=== PATIENT | female | born 1980 | race Caucasian/White ===

== ENCOUNTER 2016-07-23 11:54 | Inpatient (IN) | payer OTHER ==
[~2016-07-23] VITALS: Ht 157.5 cm; Wt 75.5 kg
[~2016-07-23 11:54] MED LIST: ASPIR 8181 M1 PO; ASPIR-LOW81 MG PO; ATORVASTATIN CA80 MG PO; Aspirin E.C. PO; CLARITIN,ALAVAR10 MG PO; CLOPIDOGREL75 MG PO; DEPAKOTE ER500 MG PO; FLUOXETINE HCL10 M1 PO; FLUOXETINE HCL10 MG PO; FLUOXETINE HCL60 MG PO; GEODON20 MG PO; GEODON40 MG PO; GLIPIZIDE5 MG PO; GLUCOPHAGE500 MG PO; ILOTYCIN1 GM LEFT EYE; KEPPRA500 MG PO; LAMICTAL200 MG PO; LAMOTRIGINE200 MG PO; LANTUS 10100 UNITS/ SC; LATUDA20 MG PO; LEVEMIR FL100 UNIT/1 SC; LEVEMIR100 UNIT/2 SQ; LEVO-T125 MCG PO; LEVOFLOXACIN750 MG PO; LEVOTHYROXINE125 MCG PO; LIPITOR40 MG PO; LO-DOSE ASPIRIN81 M2 PO; LOPRESSOR25 MG PO; METFORMIN HCL500 MG PO; METOPROLOL SUCC25 MG PO; METOPROLOL TART25 MG PO; MOTRIN800 MG PO; NICOTINE PATCH1 EAC2 TD; NORCO 5/3251 TABLET PO; PANTOPRAZOLE SO40 MG PO; PLAVIX75 MG PO; PRAVASTATIN SOD40 MG PO; RISPERDAL2 MG PO; RISPERDAL3 MG PO; ROWEEPRA500 MG PO; SAPHRIS5 MG SL; SYNTHROID125 MCG PO; TYLENOL WITH C1 EACH PO; ZESTORETIC 10-1 EAC1 PO; ZESTORETIC 20-1 EAC1 NG; ZESTORETIC 20-1 EAC1 PO; ZIPRASIDONE HCL20 MG PO; ZIPRASIDONE HCL80 MG PO; Zestoretic,Prinzide PO
[2016-07-23 13:07] LABS: CHLORIDE 91 mEq/L (99-109); POTASSIUM 3.9 mEq/L (3.7-5.4); SODIUM 131 mEq/L (136-147)
[2016-07-23 13:08] LABS: GLUCOSE 184 mg/dL (70-99)
[2016-07-23 13:10] LABS: ANION GAP 17 MEQ/L (2-14)
[2016-07-23 13:12] LABS: GFR ESTIMATE (CALCULATED) > 59 mL/min/
[2016-07-23 13:13] LABS: UREA NITROGEN (BUN) 5 mg/dL (9-23)
[2016-07-23 13:15] LABS: CREATINE KINASE 110 IU/L (1-294)
[2016-07-23 13:33] LABS: MCH 29.3 PG (29.0-34.0); MCHC 33.2 G/DL (30.0-36.0); MCV 88.4 FL (83-99); MEAN PLAT.VOLUME 10.2 uM^3 (9.5-12.4); PLATELET COUNT 300 K/uL (156-360); RBC DIS.WIDTH-CV 12.7 % (11.8-14.6); RBC DIS.WIDTH-SD 40.7 % (39-53)
[2016-07-23 13:34] LABS: WHITE BLOOD COUNT 15.4 K/uL (4.1-10.2)
[2016-07-23 15:09] LABS: TROP-I INTERPRETATION NEGATIVE; TROPONIN-I < 0.01 ng/mL (0.0-0.30)
[2016-07-23 17:22] LABS: QUANTITATIVE HCG < 4.0 MIU/ML
[2016-07-23 19:00] VITALS: BP 127/89; BP 128/89
[2016-07-23 22:04] LABS: TROP-I INTERPRETATION NEGATIVE; TROPONIN-I 0.02 ng/mL (0.0-0.30)
[2016-07-23 22:16] LABS: AMPHETAMINES QUANT VALUE 0 NG/ML; BARBITUATES QUANT VALUE 0 NG/ML; BENZODIAZEPINES, URINE SCREEN POSITIVE (200 ng/mL); MARIJUANA QUANT VALUE 0 NG/ML; OPIATES QUANTITATIVE VALUE 0 NG/ML; PHENCYCLIDINE QUANT VALUE 0 NG/ML
[2016-07-23 23:17] VITALS: BP 97/56
[2016-07-24 03:06] VITALS: BP 140/74
[2016-07-24 03:25] LABS: HEMATOCRIT 36.9 % (36.0-46.0); MCH 28.9 PG (29.0-34.0); MCHC 33.3 G/DL (30.0-36.0); MCV 86.6 FL (83-99); MEAN PLAT.VOLUME 9.9 uM^3 (9.5-12.4); PLATELET COUNT 281 K/uL (156-360); RBC DIS.WIDTH-CV 12.7 % (11.8-14.6); RBC DIS.WIDTH-SD 39.2 % (39-53); RED BLOOD COUNT 4.26 M/uL (3.80-5.20)
[2016-07-24 03:26] LABS: WHITE BLOOD COUNT 8.8 K/uL (4.1-10.2)
[2016-07-24 03:32] LABS: CHLORIDE 99 mEq/L (99-109); POTASSIUM 3.8 mEq/L (3.7-5.4); SODIUM 134 mEq/L (136-147)
[2016-07-24 03:34] LABS: GLUCOSE 123 mg/dL (70-99)
[2016-07-24 03:36] LABS: ANION GAP 9 MEQ/L (2-14)
[2016-07-24 03:38] LABS: GFR ESTIMATE (CALCULATED) > 59 mL/min/
[2016-07-24 03:39] LABS: UREA NITROGEN (BUN) 4 mg/dL (9-23)
[2016-07-24 03:45] LABS: TROP-I INTERPRETATION NEGATIVE; TROPONIN-I < 0.01 ng/mL (0.0-0.30)
[2016-07-24 07:07] VITALS: BP 116/67
[2016-07-24 11:08] VITALS: BP 118/85
== END 2016-07-24 11:23 | disposition left against medical advice (07) | DRG 101 ==
LOC: EME 11:54 → EDOF 15:40 → 4EAST 18:56
PROVIDERS: Emergency Medicine; Hospitalist; Internal Medicine
DX: G40.909 Epilepsy, unspecified, not intractable, without status epilepticus (principal); I69.352 Hemiplegia and hemiparesis following cerebral infarction affecting left dominant side; I45.6 Pre-excitation syndrome; F31.9 Bipolar disorder, unspecified; I10 Essential (primary) hypertension; E78.5 Hyperlipidemia, unspecified; E11.9 Type 2 diabetes mellitus without complications; E03.9 Hypothyroidism, unspecified; J44.9 Chronic obstructive pulmonary disease, unspecified; F17.210 Nicotine dependence, cigarettes, uncomplicated; I69.320 Aphasia following cerebral infarction; Z91.14 Patient's other noncompliance with medication regimen; Z79.02 Long term (current) use of antithrombotics/antiplatelets; Z79.82 Long term (current) use of aspirin
CPT/HCPCS: 70450; 80048; 80164; 82550; 84484; 84702; 85027; 93005; 93306; 95819; 99281; 99285; J1650; J1815; J1953; J2250; J7030; J7050

== ENCOUNTER 2016-08-14 17:28 | Emergency (ER) | payer OTHER ==
[~2016-08-14] VITALS: Ht 149.9 cm; Wt 73.2 kg
[2016-08-14 18:19] LABS: CHLORIDE 95 mEq/L (99-109); POTASSIUM 3.7 mEq/L (3.7-5.4); SODIUM 137 mEq/L (136-147)
[2016-08-14 18:21] LABS: GLUCOSE 117 mg/dL (70-99)
[2016-08-14 18:22] LABS: ANION GAP 11 MEQ/L (2-14)
[2016-08-14 18:23] LABS: TOTAL BILIRUBIN 0.3 mg/dL (0.0-1.0)
[2016-08-14 18:24] LABS: SERUM ETHYL ALCOHOL < 10 mg/dL
[2016-08-14 18:25] LABS: GFR ESTIMATE (CALCULATED) > 59 mL/min/
[2016-08-14 18:26] LABS: ALKALINE PHOSPHATASE 63 IU/L (3-129)
[2016-08-14 18:27] LABS: UREA NITROGEN (BUN) 10 mg/dL (9-23)
[2016-08-14 18:28] LABS: SALICYLATE < 5.0 MG/DL (15-30)
[2016-08-14 18:30] LABS: EOSINOPHIL (%) 1.4 % (0-5); EOSINOPHIL COUNT 0.2 K/uL (0-0.3); HEMATOCRIT 29.7 % (36.0-46.0); IMMATURE GRANULOCYTE (%) 0.2 % (0.0-0.7); LYMPHOCYTE COUNT 2.4 K/uL (1.0-2.8); MCH 29.6 PG (29.0-34.0); MCHC 33.3 G/DL (30.0-36.0); MCV 88.9 FL (83-99); MEAN PLAT.VOLUME 10.3 uM^3 (9.5-12.4); MONOCYTE (%) 10.7 % (3-12); MONOCYTE COUNT 1.2 K/uL (0-0.8); NEUTROPHIL (%) 65.1 % (45-76); PLATELET COUNT 319 K/uL (156-360); RBC DIS.WIDTH-CV 12.9 % (11.8-14.6); RBC DIS.WIDTH-SD 41.7 % (39-53); RED BLOOD COUNT 3.34 M/uL (3.80-5.20); WHITE BLOOD COUNT 10.8 K/uL (4.1-10.2)
[2016-08-14 18:40] LABS: QUANTITATIVE HCG < 4.0 MIU/ML
[2016-08-14 18:47] LABS: ADD MIUA? YES; BILIRUBIN NEGATIVE; BLOOD NEGATIVE; COLOR YELLOW ((YELLOW)); GLUCOSE (STRIP) 150; KETONES NEGATIVE; LEUKOCYTES NEGATIVE; NITRITE NEGATIVE; PROTEIN (STRIP) NEGATIVE
[2016-08-14 18:54] LABS: BACTERIA NONE SEEN /HPF; EPITHELIAL CELLS 1+ /HPF; MUCUS TRACE /LPF; RED BLOOD CELLS 0-5 /HPF (0-5); UCUL ADDED? NO; WHITE BLOOD CELLS 0-5 /HPF (0-5)
[2016-08-14 18:55] LABS: AMPHETAMINE NEGATIVE (500 ng/mL); BARBITURATES NEGATIVE (200 ng/mL); BENZODIAZEPINES NEGATIVE (150 ng/mL); COCAINE NEGATIVE (150 ng/mL); INTERNAL CONTROLS VALID? YES; METHADONE NEGATIVE (200 ng/mL); METHAMPHETAMINE NEGATIVE (500 ng/mL); OPIATES (MORPHINE) NEGATIVE (100 ng/mL); OXYCODONE NEGATIVE (100 ng/mL); PHENCYCLIDINE NEGATIVE (25 ng/mL); PROPOXYPHENE NEGATIVE (300 ng/mL); THC CANNABINOIDS NEGATIVE (50 ng/mL); TRICYCLIC ANTIDEPRESSANTS NEGATIVE (300 ng/mL)
[2016-08-14 19:17] VITALS: BP 83/38
== END 2016-08-14 19:18 | disposition home or self-care (01) ==
LOC: EME → EDBD 17:28 → EME 17:28
PROVIDERS: Emergency Medicine
DX: F32.9 Major depressive disorder, single episode, unspecified (principal); D64.9 Anemia, unspecified; F17.200 Nicotine dependence, unspecified, uncomplicated
CPT/HCPCS: 80053; 81003; 84702; 85025; 90837; 99281; 99285; G0480

== ENCOUNTER 2016-08-17 10:17 | Inpatient (IN) | payer OTHER ==
[2016-08-17] VITALS (7 sets, daily range): BP systolic 108–133; BP diastolic 54–78
[~2016-08-17] VITALS: Ht 152.4 cm; Wt 71.3 kg
[2016-08-17 10:42] LABS: BASOPHIL COUNT 0.1 K/uL (0-0.1); EOSINOPHIL (%) 0.2 % (0-5); HEMATOCRIT 34.2 % (36.0-46.0); IMMATURE GRANULOCYTE (%) 0.4 % (0.0-0.7); IMMATURE GRANULOCYTE COUNT 0.7 K/uL; LYMPHOCYTE COUNT 1.6 K/uL (1.0-2.8); MCHC 32.5 G/DL (30.0-36.0); MCV 89.3 FL (83-99); MONOCYTE (%) 4.5 % (3-12); MONOCYTE COUNT 0.8 K/uL (0-0.8); NEUTROPHIL (%) 86.2 % (45-76); NEUTROPHIL COUNT 16.1 K/uL (1.8-6.4); PLATELET COUNT 444 K/uL (156-360); RBC DIS.WIDTH-CV 12.2 % (11.8-14.6); RBC DIS.WIDTH-SD 38.8 % (39-53); RED BLOOD COUNT 3.83 M/uL (3.80-5.20); WHITE BLOOD COUNT 18.6 K/uL (4.1-10.2)
[2016-08-17 10:48] LABS: AMYLASE 16 IU/L (1-118); CHLORIDE 96 mEq/L (99-109); POTASSIUM 3.7 mEq/L (3.7-5.4); SODIUM 137 mEq/L (136-147)
[2016-08-17 10:51] LABS: ANION GAP 22 MEQ/L (2-14)
[2016-08-17 10:53] LABS: SERUM ETHYL ALCOHOL < 10 mg/dL
[2016-08-17 10:54] LABS: GFR ESTIMATE (CALCULATED) > 59 mL/min/; GLUCOSE 319 mg/dL (70-99)
[2016-08-17 10:55] LABS: UREA NITROGEN (BUN) 7 mg/dL (9-23)
[2016-08-17 10:57] LABS: LIPASE 4 U/L (1.0-51.0)
[2016-08-17 11:00] LABS: TROP-I INTERPRETATION NEGATIVE; TROPONIN-I < 0.01 ng/mL (0.0-0.30)
[2016-08-17 11:04] LABS: QUANTITATIVE HCG < 4.0 MIU/ML
[2016-08-17 11:12] LABS: INTER. NORMALIZED RATIO 1.1; PROTHROMBIN TIME 10.7 (9.2-11.2); PTT 28.5 (25-32)
[2016-08-17 12:27] LABS: ADD MIUA? NO; BILIRUBIN NEGATIVE; BLOOD NEGATIVE; COLOR YELLOW ((YELLOW)); GLUCOSE (STRIP) >=500; KETONES 20; LEUKOCYTES NEGATIVE; NITRITE NEGATIVE; PROTEIN (STRIP) NEGATIVE; SPECIFIC GRAVITY 1.012 (1.000-1.030); UCUL ADDED? NO; UROBILINOGEN 0.2 MG/DL (0.2-1.0)
[2016-08-17 12:34] LABS: AMPHETAMINE NEGATIVE (500 ng/mL); BARBITURATES NEGATIVE (200 ng/mL); BENZODIAZEPINES NEGATIVE (150 ng/mL); COCAINE NEGATIVE (150 ng/mL); INTERNAL CONTROLS VALID? YES; METHADONE NEGATIVE (200 ng/mL); METHAMPHETAMINE NEGATIVE (500 ng/mL); OPIATES (MORPHINE) NEGATIVE (100 ng/mL); OXYCODONE NEGATIVE (100 ng/mL); PHENCYCLIDINE NEGATIVE (25 ng/mL); PROPOXYPHENE NEGATIVE (300 ng/mL); THC CANNABINOIDS NEGATIVE (50 ng/mL); TRICYCLIC ANTIDEPRESSANTS NEGATIVE (300 ng/mL)
[2016-08-17 12:39] LABS: BASE EXCESS 4.1 mEq/L (-3 to +3); BICARBONATE 27.1 mEq/L (22-26); CARBOXY HGB 3.9 % (0-5); METHEMOGLOBIN 0.8 % (0-1.5); PO2 126 mm Hg (80-100)
[2016-08-17 12:40] LABS: COMMENTS - BLOOD GASES A+C+; DEVICE 840 PB; FI02 50 %; MECHANICAL RATE 16 resp/min; MODE AC; PCO2 34 mm Hg (35-45); PEEP 5 CM/H20; SITE LR; TIDAL VOLUME 550 ML; TOTAL RESP RATE 16 resp/min; pH 7.51 (7.35-7.45)
[2016-08-17 16:35] LABS: HEMATOCRIT 29.9 % (36.0-46.0); MCH 28.5 PG (29.0-34.0); MCHC 32.4 G/DL (30.0-36.0); MCV 87.9 FL (83-99); MEAN PLAT.VOLUME 9.7 uM^3 (9.5-12.4); PLATELET COUNT 430 K/uL (156-360); RBC DIS.WIDTH-CV 12.3 % (11.8-14.6); RBC DIS.WIDTH-SD 38.3 % (39-53)
[2016-08-17 16:42] LABS: CHLORIDE 100 mEq/L (99-109); POTASSIUM 4.3 mEq/L (3.7-5.4); SODIUM 138 mEq/L (136-147)
[2016-08-17 16:46] LABS: ANION GAP 12 MEQ/L (2-14)
[2016-08-17 16:47] LABS: SERUM ETHYL ALCOHOL < 10 mg/dL
[2016-08-17 16:48] LABS: ALKALINE PHOSPHATASE 70 IU/L (3-129); GFR ESTIMATE (CALCULATED) > 59 mL/min/
[2016-08-17 16:49] LABS: UREA NITROGEN (BUN) 7 mg/dL (9-23)
[2016-08-17 16:53] LABS: GLUCOSE 144 mg/dL (70-99); TOTAL BILIRUBIN 0.1 mg/dL (0.0-1.0)
[2016-08-17 20:56] LABS: METH RESISTANT S AUREUS PCR NEGATIVE (NEGATIVE)
[2016-08-17 20:57] LABS: PROBE CHECK PASS; SPECIMEN PROCESSING CONTROL PASS
[2016-08-18] VITALS (16 sets, daily range): BP systolic 114–157; BP diastolic 54–87
[2016-08-18 05:47] LABS: HEMATOCRIT 29.1 % (36.0-46.0); MCH 29.2 PG (29.0-34.0); MCV 88.4 FL (83-99); MEAN PLAT.VOLUME 9.9 uM^3 (9.5-12.4); PLATELET COUNT 385 K/uL (156-360); RBC DIS.WIDTH-SD 42.2 % (39-53); RED BLOOD COUNT 3.29 M/uL (3.80-5.20); WHITE BLOOD COUNT 14.8 K/uL (4.1-10.2)
[2016-08-18 06:14] LABS: ANION GAP 15 MEQ/L (2-14); CHLORIDE 99 MEQ/L (99-109); GFR ESTIMATE (CALCULATED) > 59 mL/min/; GLUCOSE 110 mg/dL (70-99); MAGNESIUM 1.6 mg/dl (1.3-2.7); POTASSIUM 3.5 MEQ/L (3.7-5.4); SAMPLE HEMOLYSIS CHECK 0; SAMPLE ICTERIC CHECK 0; SAMPLE LIPEMIA CHECK 0; SODIUM 137 MEQ/L (136-147); UREA NITROGEN (BUN) 10 mg/dL (9-23)
[2016-08-18 06:17] LABS: POINT-OF-CARE METER ID UU13113803
[2016-08-19] VITALS (13 sets, daily range): BP systolic 109–146; BP diastolic 61–91
[2016-08-19 05:41] LABS: POINT-OF-CARE METER ID UU14162636
[2016-08-19 05:52] LABS: HEMATOCRIT 29.4 % (36.0-46.0); MCH 28.6 PG (29.0-34.0); MCV 89.4 FL (83-99); MEAN PLAT.VOLUME 9.9 uM^3 (9.5-12.4); PLATELET COUNT 363 K/uL (156-360); RED BLOOD COUNT 3.29 M/uL (3.80-5.20); WHITE BLOOD COUNT 14.7 K/uL (4.1-10.2)
[2016-08-19 06:45] LABS: ANION GAP 13 MEQ/L (2-14); CHLORIDE 105 MEQ/L (99-109); GFR ESTIMATE (CALCULATED) > 59 mL/min/; GLUCOSE 130 mg/dL (70-99); MAGNESIUM 1.7 mg/dl (1.3-2.7); POTASSIUM 3.9 MEQ/L (3.7-5.4); SAMPLE HEMOLYSIS CHECK 0; SAMPLE ICTERIC CHECK 0; SAMPLE LIPEMIA CHECK 0; UREA NITROGEN (BUN) 7 mg/dL (9-23)
[2016-08-19 06:56] LABS: SODIUM 145 MEQ/L (136-147)
[2016-08-20] VITALS (11 sets, daily range): BP systolic 121–173; BP diastolic 66–91
[2016-08-20 05:55] LABS: POINT-OF-CARE METER ID UU13113803
[2016-08-20 06:12] LABS: HEMATOCRIT 33.7 % (36.0-46.0); MCH 28.9 PG (29.0-34.0); MCHC 32.6 G/DL (30.0-36.0); MCV 88.7 FL (83-99); PLATELET COUNT 442 K/uL (156-360); RBC DIS.WIDTH-CV 12.8 % (11.8-14.6); RBC DIS.WIDTH-SD 41.2 % (39-53)
[2016-08-20 06:20] LABS: ANION GAP 10 MEQ/L (2-14); CHLORIDE 103 MEQ/L (99-109); GFR ESTIMATE (CALCULATED) > 59 mL/min/; GLUCOSE 160 mg/dL (70-99); MAGNESIUM 1.5 mg/dl (1.3-2.7); POTASSIUM 3.7 MEQ/L (3.7-5.4); SAMPLE HEMOLYSIS CHECK 0; SAMPLE ICTERIC CHECK 0; SAMPLE LIPEMIA CHECK 0; SODIUM 144 MEQ/L (136-147); UREA NITROGEN (BUN) 6 mg/dL (9-23)
[2016-08-20] MEDS ORDERED: Depakene PO (07:35)
[2016-08-20] MEDS ORDERED: LEVETIRACETAM750 MG PO (07:35)
[2016-08-20] MEDS ORDERED: CLOPIDOGREL75 MG PO ×2 (10:05→11:54)
[2016-08-20] MEDS ORDERED: ATORVASTATIN CA80 MG PO (10:05)
[2016-08-20] MEDS ORDERED: RISPERIDONE3 MG PO (10:05)
[2016-08-20] MEDS ORDERED: ZESTORETIC 20-1 EAC1 PO ×2 (10:05→11:54)
[2016-08-20] MEDS ORDERED: ASPIR-LOW81 MG PO (10:06)
[2016-08-20] MEDS ORDERED: LEVOTHYROXINE125 MCG PO (10:06)
[2016-08-20] MEDS ORDERED: METOPROLOL TART25 MG PO (10:07)
[2016-08-20] MEDS ORDERED: METFORMIN HCL500 MG PO (10:09)
[2016-08-20] MEDS ORDERED: LANTUS 10100 UNITS/ SQ (10:10)
[2016-08-20] MEDS ORDERED: DIVALPROEX SOD500 M1 PO (10:11)
[2016-08-20 12:59] LABS: POINT-OF-CARE METER ID UU13113803
[2016-08-21] MEDS ORDERED: PREDNISONE50 MG PO (08:30)
[2016-08-21] MEDS ORDERED: ZITHROMAX Z-PA250 MG PO (08:31)
== END 2016-08-20 15:29 | disposition home or self-care (01) | DRG 100 ==
LOC: EME 10:17 → 4WEST 16:09 → EDOF 16:09 → 4WEST 17:58
PROVIDERS: Emergency Medicine; Hospitalist; Internal Medicine; Internal Medicine Critical Care Medicine
PROC: 5A0935Z Assistance with Respiratory Ventilation, Less than 24 Consecutive Hours (ICD-10-PCS; principal; 2016-08-17)
PROC: 0BH17EZ Insertion of Endotracheal Airway into Trachea, Via Natural or Artificial Opening (ICD-10-PCS; principal; 2016-08-17)
DX: G40.901 Epilepsy, unspecified, not intractable, with status epilepticus (principal); G93.40 Encephalopathy, unspecified; J96.00 Acute respiratory failure, unspecified whether with hypoxia or hypercapnia; Z91.19 Patient's noncompliance with other medical treatment and regimen; F31.9 Bipolar disorder, unspecified; I10 Essential (primary) hypertension; I69.320 Aphasia following cerebral infarction; E03.9 Hypothyroidism, unspecified; F17.200 Nicotine dependence, unspecified, uncomplicated; E11.65 Type 2 diabetes mellitus with hyperglycemia; E78.5 Hyperlipidemia, unspecified; J45.909 Unspecified asthma, uncomplicated; D72.829 Elevated white blood cell count, unspecified
CPT/HCPCS: 36600; 70450; 70551; 71010; 80048; 80053; 80164; 81003; 82150; 82803; 82948; 83690; 83735; 84100; 84484; 84702; 85025; 85027; 85610; 85730; 86850; 86900; 86901; 87070; 87205; 87641; 92526 GN; 92610 GN; 93005; 94002; 94799; 99281; 99285; B4087; G0480; J1650; J1815; J1953; J2060; J2250; J2405; J2704; J3010; J7050; J7120; S0028

== ENCOUNTER 2016-08-21 07:31 | Emergency (ER) | payer OTHER ==
[~2016-08-21] VITALS: Ht 149.9 cm; Wt 73.5 kg
[~2016-08-21 07:31] MED LIST changes: +DIVALPROEX SOD500 M1 PO; +Depakene PO; +LANTUS 10100 UNITS/ SQ; +LEVETIRACETAM750 MG PO; +RISPERIDONE3 MG PO
[2016-08-21] MEDS ORDERED: PREDNISONE50 MG PO (08:30)
[2016-08-21] MEDS ORDERED: ZITHROMAX Z-PA250 MG PO (08:31)
[2016-08-21 08:44] VITALS: BP 118/81
[2016-08-21 09:10] LABS: POINT-OF-CARE METER ID UU14100415
== END 2016-08-21 08:55 | disposition home or self-care (01) ==
LOC: EME → EDBD 07:31 → EME 08:55
PROVIDERS: Emergency Medicine
DX: J20.9 Acute bronchitis, unspecified (principal); J45.901 Unspecified asthma with (acute) exacerbation; E11.9 Type 2 diabetes mellitus without complications; I10 Essential (primary) hypertension; E03.9 Hypothyroidism, unspecified; R56.9 Unspecified convulsions; Z86.73 Personal history of transient ischemic attack (TIA), and cerebral infarction without residual deficits; Z79.84 Long term (current) use of oral hypoglycemic drugs; Z79.82 Long term (current) use of aspirin; F17.200 Nicotine dependence, unspecified, uncomplicated
CPT/HCPCS: 71020; 82948; 94640; 99281; 99284; J2930; J7644

== ENCOUNTER 2016-08-23 22:22 | Inpatient (IN) | payer OTHER ==
[~2016-08-23] VITALS: Ht 162.6 cm; Wt 70.0 kg
[~2016-08-23 22:22] MED LIST changes: +PREDNISONE50 MG PO; +ZITHROMAX Z-PA250 MG PO
[2016-08-23 23:45] LABS: CHLORIDE 100 mEq/L (99-109); HEMATOCRIT 32.8 % (36.0-46.0); MCH 28.7 PG (29.0-34.0); MCV 89.6 FL (83-99); MEAN PLAT.VOLUME 9.2 uM^3 (9.5-12.4); PLATELET COUNT 497 K/uL (156-360); POTASSIUM 4.1 mEq/L (3.7-5.4); RBC DIS.WIDTH-CV 12.9 % (11.8-14.6); RBC DIS.WIDTH-SD 40.6 % (39-53); RED BLOOD COUNT 3.66 M/uL (3.80-5.20); SODIUM 141 mEq/L (136-147)
[2016-08-23 23:46] LABS: GLUCOSE 238 mg/dL (70-99); WHITE BLOOD COUNT 26.6 K/uL (4.1-10.2)
[2016-08-23 23:48] LABS: ANION GAP 12 MEQ/L (2-14)
[2016-08-23 23:50] LABS: GFR ESTIMATE (CALCULATED) > 59 mL/min/
[2016-08-23 23:51] LABS: UREA NITROGEN (BUN) 10 mg/dL (9-23)
[2016-08-23 23:56] LABS: TROP-I INTERPRETATION NEGATIVE; TROPONIN-I 0.01 ng/mL (0.0-0.30)
[2016-08-23 23:57] LABS: CARBON DIOXIDE (BICARBONATE) 35.5 MEQ/L (20-31)
[2016-08-24 05:02] LABS: INFLUENZA A VIRAL ANTIGEN NEGATIVE; INFLUENZA B VIRAL ANTIGEN NEGATIVE
[2016-08-24 05:08] LABS: BASE EXCESS 4.1 mEq/L (-3 to +3); BICARBONATE 27.1 mEq/L (22-26); CARBOXY HGB 2.5 % (0-5); METHEMOGLOBIN 1.4 % (0-1.5); PCO2 34 mm Hg (35-45); pH 7.51 (7.35-7.45)
[2016-08-24 05:09] LABS: PO2 61 mm Hg (80-100); SITE LR
[2016-08-24 05:10] LABS: COMMENTS - BLOOD GASES A+C+; DEVICE NC
[2016-08-24 05:12] LABS: TOTAL RESP RATE 24 resp/min
[2016-08-24 06:37] LABS: HEMATOCRIT 32.7 % (36.0-46.0); MCH 28.7 PG (29.0-34.0); MCHC 32.1 G/DL (30.0-36.0); MCV 89.3 FL (83-99); MEAN PLAT.VOLUME 9.1 uM^3 (9.5-12.4); PLATELET COUNT 430 K/uL (156-360); RBC DIS.WIDTH-CV 13.1 % (11.8-14.6); RBC DIS.WIDTH-SD 40.9 % (39-53); RED BLOOD COUNT 3.66 M/uL (3.80-5.20); WHITE BLOOD COUNT 24.5 K/uL (4.1-10.2)
[2016-08-24 06:38] LABS: EOSINOPHIL (%) 0 % (0-5); IMMATURE GRANULOCYTE (%) 0.3 % (0.0-0.7); IMMATURE GRANULOCYTE COUNT 0.8 K/uL; LYMPHOCYTE COUNT 0.7 K/uL (1.0-2.8); MONOCYTE (%) 1.6 % (3-12); MONOCYTE COUNT 0.4 K/uL (0-0.8); NEUTROPHIL (%) 95.3 % (45-76); NEUTROPHIL COUNT 23.3 K/uL (1.8-6.4)
[2016-08-24 07:21] LABS: ANION GAP 8 MEQ/L (2-14); CHLORIDE 108 MEQ/L (99-109); GFR ESTIMATE (CALCULATED) > 59 mL/min/; GLUCOSE 213 mg/dL (70-99); POTASSIUM 3.5 MEQ/L (3.7-5.4); SAMPLE HEMOLYSIS CHECK 0; SAMPLE ICTERIC CHECK 0; SAMPLE LIPEMIA CHECK 0; SODIUM 143 MEQ/L (136-147); UREA NITROGEN (BUN) 8 mg/dL (9-23)
[2016-08-24 08:00] LABS: POINT-OF-CARE METER ID UU13113702
[2016-08-24 12:08] LABS: POINT-OF-CARE METER ID UU14100415
[2016-08-24 16:15] LABS: POINT-OF-CARE METER ID UU13113702
[2016-08-24 17:32] LABS: ADD MIUA? NO; BILIRUBIN NEGATIVE; BLOOD NEGATIVE; COLOR YELLOW ((YELLOW)); GLUCOSE (STRIP) 250; KETONES TRACE; LEUKOCYTES NEGATIVE; NITRITE NEGATIVE; PH, URINE 7.5 (5-8); PROTEIN (STRIP) NEGATIVE; SPECIFIC GRAVITY 1.005 (1.000-1.030); UCUL ADDED? NO; UROBILINOGEN 0.2 MG/DL (0.2-1.0)
[2016-08-24 18:14] VITALS: BP 111/55
[2016-08-24] MEDS ORDERED: Zestoretic,Prinzide PO (19:25)
[2016-08-24] MEDS ORDERED: LEVETIRACETAM750 MG PO (19:25)
[2016-08-24] MEDS ORDERED: ASPIR-LOW81 MG PO (19:25)
[2016-08-24] MEDS ORDERED: CLOPIDOGREL75 MG PO (19:25)
[2016-08-24] MEDS ORDERED: DIVALPROEX SOD500 MG PO (19:25)
[2016-08-24] MEDS ORDERED: SYNTHROID125 MCG PO (19:25)
[2016-08-24] MEDS ORDERED: AUGMENTIN875 MG PO (19:25)
[2016-08-24 23:49] VITALS: BP 115/63
[2016-08-25 04:11] VITALS: BP 133/67
[2016-08-25 07:30] VITALS: BP 126/80
[2016-08-25 07:56] LABS: INTERNAL CONTROL VALID? YES
[2016-08-25 10:08] LABS: EOSINOPHIL (%) 0.8 % (0-5); EOSINOPHIL COUNT 0.2 K/uL (0-0.3); HEMATOCRIT 31.7 % (36.0-46.0); IMMATURE GRANULOCYTE (%) 0.4 % (0.0-0.7); IMMATURE GRANULOCYTE COUNT 0.1 K/uL; LYMPHOCYTE COUNT 1.2 K/uL (1.0-2.8); MCH 27.8 PG (29.0-34.0); MCHC 31.2 G/DL (30.0-36.0); MEAN PLAT.VOLUME 9.6 uM^3 (9.5-12.4); MONOCYTE (%) 1.9 % (3-12); MONOCYTE COUNT 0.4 K/uL (0-0.8); NEUTROPHIL (%) 91.3 % (45-76); NEUTROPHIL COUNT 19.2 K/uL (1.8-6.4); PLATELET COUNT 387 K/uL (156-360); RBC DIS.WIDTH-CV 13.4 % (11.8-14.6); RBC DIS.WIDTH-SD 43.8 % (39-53); RED BLOOD COUNT 3.56 M/uL (3.80-5.20)
[2016-08-25 10:32] LABS: ANION GAP 14 MEQ/L (2-14); CHLORIDE 101 MEQ/L (99-109); POTASSIUM 3.9 MEQ/L (3.7-5.4); SAMPLE HEMOLYSIS CHECK 0; SAMPLE ICTERIC CHECK 0; SAMPLE LIPEMIA CHECK 0; SODIUM 140 MEQ/L (136-147)
[2016-08-25 10:38] LABS: GFR ESTIMATE (CALCULATED) > 59 mL/min/; GLUCOSE 187 mg/dL (70-99); UREA NITROGEN (BUN) 7 mg/dL (9-23)
[2016-08-25 12:00] VITALS: BP 111/56
[2016-08-25 15:24] VITALS: BP 100/50
== END 2016-08-25 18:43 | disposition home or self-care (01) | DRG 190 ==
LOC: EME → EDBD 22:22 → EME 22:22 → 5SOUTH 08-24 01:54 → EDOF 08-24 01:54 → UNDODEPER 08-24 16:38 → 5SOUTH 08-24 17:43
PROVIDERS: Emergency Medicine; Hospitalist; Internal Medicine; Student in an Organized Health Care Education/Training Program
DX: J44.1 Chronic obstructive pulmonary disease with (acute) exacerbation (principal); J18.9 Pneumonia, unspecified organism; E03.9 Hypothyroidism, unspecified; I69.320 Aphasia following cerebral infarction; G40.909 Epilepsy, unspecified, not intractable, without status epilepticus; I10 Essential (primary) hypertension; E11.9 Type 2 diabetes mellitus without complications; E78.5 Hyperlipidemia, unspecified; Z74.01 Bed confinement status; J69.0 Pneumonitis due to inhalation of food and vomit; I45.6 Pre-excitation syndrome; E66.9 Obesity, unspecified; R00.0 Tachycardia, unspecified; F31.9 Bipolar disorder, unspecified; Z68.26 Body mass index [BMI] 26.0-26.9, adult; Z88.8 Allergy status to other drugs, medicaments and biological substances
CPT/HCPCS: 36600; 71020; 71250; 80048; 80164; 81003; 82803; 82948; 83605; 83880; 84484; 85025; 85027; 86480 90; 87040; 87070; 87116; 87205; 87206; 87449; 87502; 93005; 94640; 99202; 99281; 99285; J0456; J1644; J1815; J1956; J2543; J2930; J3370; J7030; J7050; J7644

== ENCOUNTER 2016-09-12 01:14 | Emergency (ER) | payer SELFPAY ==
[~2016-09-12] VITALS: Ht 152.4 cm; Wt 74.1 kg
[~2016-09-12 01:14] MED LIST changes: +AUGMENTIN875 MG PO; +DIVALPROEX SOD500 MG PO
[2016-09-12 02:13] LABS: AMPHETAMINE NEGATIVE (500 ng/mL); BARBITURATES NEGATIVE (200 ng/mL); BENZODIAZEPINES NEGATIVE (150 ng/mL); COCAINE PRESUMPTIVE POSITIVE (150 ng/mL); INTERNAL CONTROLS VALID? YES; METHADONE NEGATIVE (200 ng/mL); METHAMPHETAMINE NEGATIVE (500 ng/mL); OPIATES (MORPHINE) NEGATIVE (100 ng/mL); OXYCODONE NEGATIVE (100 ng/mL); PHENCYCLIDINE NEGATIVE (25 ng/mL); PROPOXYPHENE NEGATIVE (300 ng/mL); THC CANNABINOIDS PRESUMPTIVE POSITIVE (50 ng/mL); TRICYCLIC ANTIDEPRESSANTS NEGATIVE (300 ng/mL)
[2016-09-12 02:14] LABS: ADD MEDTOX COMMENT Y
[2016-09-12 02:20] LABS: HEMATOCRIT 31.4 % (36.0-46.0); MCH 28.3 PG (29.0-34.0); MCHC 31.8 G/DL (30.0-36.0); MEAN PLAT.VOLUME 9.8 uM^3 (9.5-12.4); PLATELET COUNT 273 K/uL (156-360); RBC DIS.WIDTH-CV 13.6 % (11.8-14.6); RBC DIS.WIDTH-SD 44.3 % (39-53); RED BLOOD COUNT 3.53 M/uL (3.80-5.20)
[2016-09-12 02:22] LABS: WHITE BLOOD COUNT 9.6 K/uL (4.1-10.2)
[2016-09-12 02:35] LABS: CHLORIDE 98 mEq/L (99-109); POTASSIUM 3.9 mEq/L (3.7-5.4); SODIUM 139 mEq/L (136-147)
[2016-09-12 02:37] LABS: GLUCOSE 129 mg/dL (70-99)
[2016-09-12 02:38] LABS: ANION GAP 10 MEQ/L (2-14)
[2016-09-12 02:40] LABS: SERUM ETHYL ALCOHOL < 10 mg/dL
[2016-09-12 02:41] LABS: GFR ESTIMATE (CALCULATED) > 59 mL/min/
[2016-09-12 02:43] LABS: UREA NITROGEN (BUN) 10 mg/dL (9-23)
[2016-09-12 02:44] LABS: SALICYLATE < 5.0 MG/DL (15-30)
[2016-09-12 05:28] VITALS: BP 108/59
== END 2016-09-12 05:35 | disposition home or self-care (01) ==
LOC: EME → EDBD 01:14 → EME 01:14
PROVIDERS: Emergency Medicine
DX: F31.30 Bipolar disorder, current episode depressed, mild or moderate severity, unspecified (principal); J44.9 Chronic obstructive pulmonary disease, unspecified; E11.9 Type 2 diabetes mellitus without complications; I10 Essential (primary) hypertension; I69.320 Aphasia following cerebral infarction; E03.9 Hypothyroidism, unspecified; F17.200 Nicotine dependence, unspecified, uncomplicated
CPT/HCPCS: 80048; 84999; 85027; 90839; 99281; 99284; G0480

== ENCOUNTER 2016-09-20 20:58 | Emergency (ER) | payer SELFPAY ==
[~2016-09-20] VITALS: Ht 149.9 cm; Wt 74.7 kg
[2016-09-20 22:51] LABS: MCH 28.2 PG (29.0-34.0); MCHC 30.8 G/DL (30.0-36.0); MCV 91.6 FL (83-99); MEAN PLAT.VOLUME 9.5 uM^3 (9.5-12.4); PLATELET COUNT 244 K/uL (156-360); RBC DIS.WIDTH-SD 50.2 % (39-53); RED BLOOD COUNT 4.04 M/uL (3.80-5.20); WHITE BLOOD COUNT 8.6 K/uL (4.1-10.2)
[2016-09-20 23:02] LABS: CHLORIDE 101 mEq/L (99-109); POTASSIUM 4.3 mEq/L (3.7-5.4); SODIUM 141 mEq/L (136-147)
[2016-09-20 23:04] LABS: GLUCOSE 202 mg/dL (70-99)
[2016-09-20 23:06] LABS: ANION GAP 9 MEQ/L (2-14); TOTAL BILIRUBIN 0.2 mg/dL (0.0-1.0)
[2016-09-20 23:07] LABS: SERUM ETHYL ALCOHOL < 10 mg/dL
[2016-09-20 23:08] LABS: GFR ESTIMATE (CALCULATED) > 59 mL/min/
[2016-09-20 23:09] LABS: ALKALINE PHOSPHATASE 67 IU/L (3-129)
[2016-09-20 23:10] LABS: UREA NITROGEN (BUN) 21 mg/dL (9-23)
[2016-09-20 23:11] LABS: SALICYLATE < 5.0 MG/DL (15-30)
[2016-09-20 23:23] LABS: QUANTITATIVE HCG < 4.0 MIU/ML
[2016-09-21 01:05] VITALS: BP 105/64
== END 2016-09-21 01:10 | disposition home or self-care (01) ==
LOC: EME 20:58
DX: F31.30 Bipolar disorder, current episode depressed, mild or moderate severity, unspecified (principal); E11.9 Type 2 diabetes mellitus without complications; Z91.14 Patient's other noncompliance with medication regimen; J44.9 Chronic obstructive pulmonary disease, unspecified; I69.320 Aphasia following cerebral infarction; E03.9 Hypothyroidism, unspecified; F17.200 Nicotine dependence, unspecified, uncomplicated; Z79.82 Long term (current) use of aspirin
CPT/HCPCS: 80053; 81003; 84702; 85027; 90839; 99281; 99284; G0480

== ENCOUNTER 2016-09-25 12:30 | Emergency (ER) | payer SELFPAY ==
[~2016-09-25] VITALS: Ht 157.5 cm; Wt 71.7 kg
[2016-09-25] MEDS ORDERED: UNABLE TO OBTAIN (13:34)
[2016-09-25 14:18] LABS: EOSINOPHIL (%) 0 % (0-5); HEMATOCRIT 39.8 % (36.0-46.0); IMMATURE GRANULOCYTE (%) 0.5 % (0.0-0.7); IMMATURE GRANULOCYTE COUNT 0.1 K/uL; INSTRUMENT ABS NEUTROPHIL CT 8.5 K/uL; MCH 28.8 PG (29.0-34.0); MCHC 32.2 G/DL (30.0-36.0); MCV 89.4 FL (83-99); MEAN PLAT.VOLUME 9.3 uM^3 (9.5-12.4); MONOCYTE (%) 3.9 % (3-12); MONOCYTE COUNT 0.4 K/uL (0-0.8); NEUTROPHIL COUNT 8.5 K/uL (1.8-6.4); RBC DIS.WIDTH-CV 14.6 % (11.8-14.6); RBC DIS.WIDTH-SD 47.7 % (39-53); RED BLOOD COUNT 4.45 M/uL (3.80-5.20)
[2016-09-25 14:19] LABS: PLATELET COUNT 327 K/uL (156-360)
[2016-09-25 14:22] LABS: CHLORIDE 94 mEq/L (99-109); POTASSIUM 4.4 mEq/L (3.7-5.4); SODIUM 138 mEq/L (136-147)
[2016-09-25 14:24] LABS: GLUCOSE 242 mg/dL (70-99)
[2016-09-25 14:25] LABS: ANION GAP 16 MEQ/L (2-14)
[2016-09-25 14:27] LABS: GFR ESTIMATE (CALCULATED) > 59 mL/min/
[2016-09-25 14:28] LABS: UREA NITROGEN (BUN) 16 mg/dL (9-23)
[2016-09-25 15:55] VITALS: BP 132/75
== END 2016-09-25 15:56 | disposition home or self-care (01) ==
LOC: EME 12:30
PROVIDERS: Emergency Medicine
DX: F16.20 Hallucinogen dependence, uncomplicated (principal); E11.65 Type 2 diabetes mellitus with hyperglycemia; Z91.14 Patient's other noncompliance with medication regimen; J44.9 Chronic obstructive pulmonary disease, unspecified; J45.909 Unspecified asthma, uncomplicated; I10 Essential (primary) hypertension; R56.9 Unspecified convulsions; I69.320 Aphasia following cerebral infarction; E03.9 Hypothyroidism, unspecified; F12.10 Cannabis abuse, uncomplicated; F14.10 Cocaine abuse, uncomplicated; F17.200 Nicotine dependence, unspecified, uncomplicated
CPT/HCPCS: 80048; 85025; 99281; 99284

== ENCOUNTER 2016-09-26 08:01 | Emergency (ER) | payer SELFPAY ==
[~2016-09-26] VITALS: Ht 149.9 cm; Wt 70.5 kg
[~2016-09-26 08:01] MED LIST changes: +UNABLE TO OBTAIN
[2016-09-26 10:51] VITALS: BP 142/79
== END 2016-09-26 10:54 | disposition left against medical advice (07) ==
LOC: EME → EDBD 08:01 → EME 08:01
DX: F19.10 Other psychoactive substance abuse, uncomplicated (principal); R09.02 Hypoxemia; R09.81 Nasal congestion; F17.200 Nicotine dependence, unspecified, uncomplicated
CPT/HCPCS: 71020; 80053; 84702; 85025; 90832; 94644; 99281; 99284

== ENCOUNTER 2016-09-30 15:55 | Inpatient (IN) | payer OTHER ==
[~2016-09-30] VITALS: Ht 165.1 cm; Wt 71.6 kg
[2016-09-30 16:37] LABS: HEMATOCRIT 42.8 % (36.0-46.0); MCH 29.3 PG (29.0-34.0); MCHC 31.8 G/DL (30.0-36.0); MCV 92.2 FL (83-99); MEAN PLAT.VOLUME 11.3 uM^3 (9.5-12.4); PLATELET COUNT 399 K/uL (156-360); RBC DIS.WIDTH-CV 15.5 % (11.8-14.6); RBC DIS.WIDTH-SD 52.4 % (39-53); RED BLOOD COUNT 4.64 M/uL (3.80-5.20); WHITE BLOOD COUNT 16.1 K/uL (4.1-10.2)
[2016-09-30] MEDS ORDERED: PLAVIX75 MG PO (17:45)
[2016-09-30] MEDS ORDERED: KEPPRA750 MG PO (17:46)
[2016-09-30] MEDS ORDERED: SYNTHROID125 MCG PO (17:48)
[2016-09-30] MEDS ORDERED: ZESTORETIC 20-1 EAC1 PO (17:49)
[2016-09-30] MEDS ORDERED: RISPERIDONE3 MG PO (17:50)
[2016-09-30] MEDS ORDERED: VALPROIC ACID250 MG PO (17:53)
[2016-09-30] MEDS ORDERED: DIVALPROEX SOD500 M1 PO (17:54)
[2016-09-30] MEDS ORDERED: ASPIR-LOW81 MG PO (17:56)
[2016-09-30 18:20] LABS: POTASSIUM 4.1 mEq/L (3.7-5.4); SODIUM 142 mEq/L (136-147)
[2016-09-30 18:22] LABS: GLUCOSE 204 mg/dL (70-99)
[2016-09-30 18:23] LABS: ANION GAP 10 MEQ/L (2-14)
[2016-09-30 18:26] LABS: GFR ESTIMATE (CALCULATED) > 59 mL/min/; UREA NITROGEN (BUN) 8 mg/dL (9-23)
[2016-09-30 18:27] LABS: CHLORIDE 108 mEq/L (99-109)
[2016-09-30 18:28] LABS: CREATINE KINASE 27 IU/L (1-294)
[2016-09-30 18:36] LABS: PHENOBARBITAL < 5.0 MCG/ML (15-40)
[2016-09-30 19:23] LABS: ADD MIUA? NO; BILIRUBIN NEGATIVE; BLOOD NEGATIVE; COLOR STRAW ((YELLOW)); GLUCOSE (STRIP) 150; KETONES NEGATIVE; LEUKOCYTES NEGATIVE; NITRITE NEGATIVE; PROTEIN (STRIP) NEGATIVE; SPECIFIC GRAVITY 1.009 (1.000-1.030); UCUL ADDED? NO; UROBILINOGEN 0.2 MG/DL (0.2-1.0)
[2016-10-01 00:04] VITALS: BP 136/89
[2016-10-01 04:26] VITALS: BP 161/85
[2016-10-01 07:41] VITALS: BP 158/88
[2016-10-01 08:56] LABS: ALKALINE PHOSPHATASE 57 IU/L (3-129); ANION GAP 8 MEQ/L (2-14); CHLORIDE 107 MEQ/L (99-109); GFR ESTIMATE (CALCULATED) > 59 mL/min/; GLUCOSE 162 mg/dL (70-99); POTASSIUM 3.9 MEQ/L (3.7-5.4); SAMPLE HEMOLYSIS CHECK 0; SAMPLE ICTERIC CHECK 0; SAMPLE LIPEMIA CHECK 0; SODIUM 142 MEQ/L (136-147); TOTAL BILIRUBIN 0.4 MG/DL (0.0-1.0); UREA NITROGEN (BUN) 5 mg/dL (9-23)
[2016-10-01 09:01] LABS: HEMATOCRIT 38.1 % (36.0-46.0); MCH 27.9 PG (29.0-34.0); MCHC 30.7 G/DL (30.0-36.0); MCV 90.9 FL (83-99); MEAN PLAT.VOLUME 9.8 uM^3 (9.5-12.4); PLATELET COUNT 372 K/uL (156-360); RBC DIS.WIDTH-CV 15.5 % (11.8-14.6); RBC DIS.WIDTH-SD 51.2 % (39-53); RED BLOOD COUNT 4.19 M/uL (3.80-5.20)
[2016-10-01 09:35] LABS: Estimated Average Glucose 146 mg/dL (70-123); HEMOGLOBIN A1c (GLYCOHEMOGLOB) 6.7 % HGB (Below 5.7)
[2016-10-01 11:21] VITALS: BP 125/70
[2016-10-01 12:25] LABS: AMPHETAMINES QUANT VALUE 0 NG/ML; BARBITUATES QUANT VALUE 0 NG/ML; BENZODIAZEPINES QUANT VALUE 0 NG/ML; BENZODIAZEPINES, URINE SCREEN Negative (200 ng/mL); MARIJUANA QUANT VALUE 0 NG/ML; OPIATES QUANTITATIVE VALUE 0 NG/ML; PHENCYCLIDINE QUANT VALUE 0 NG/ML
[2016-10-01 16:03] VITALS: BP 99/56
[2016-10-01 16:27] LABS: POINT-OF-CARE METER ID UU14174216
[2016-10-01 19:55] VITALS: BP 102/55; BP 125/58
[2016-10-01 20:56] LABS: POINT-OF-CARE METER ID UU13113698
[2016-10-02 01:22] VITALS: BP 109/58
[2016-10-02 05:11] VITALS: BP 100/55
[2016-10-02 06:19] LABS: BASOPHIL COUNT 0.1 K/uL (0-0.1); EOSINOPHIL (%) 2.6 % (0-5); EOSINOPHIL COUNT 0.2 K/uL (0-0.3); HEMATOCRIT 39.6 % (36.0-46.0); IMMATURE GRANULOCYTE (%) 0.2 % (0.0-0.7); LYMPHOCYTE COUNT 2.6 K/uL (1.0-2.8); MCH 28.3 PG (29.0-34.0); MCHC 31.1 G/DL (30.0-36.0); MEAN PLAT.VOLUME 9.8 uM^3 (9.5-12.4); MONOCYTE (%) 7.1 % (3-12); MONOCYTE COUNT 0.4 K/uL (0-0.8); NEUTROPHIL (%) 47.8 % (45-76); PLATELET COUNT 310 K/uL (156-360); RBC DIS.WIDTH-CV 15.4 % (11.8-14.6); RBC DIS.WIDTH-SD 51.5 % (39-53); RED BLOOD COUNT 4.35 M/uL (3.80-5.20)
[2016-10-02 06:39] LABS: ANION GAP 8 MEQ/L (2-14); CHLORIDE 103 MEQ/L (99-109); GFR ESTIMATE (CALCULATED) > 59 mL/min/; GLUCOSE 184 mg/dL (70-99); POTASSIUM 3.7 MEQ/L (3.7-5.4); SAMPLE HEMOLYSIS CHECK 0; SAMPLE ICTERIC CHECK 0; SAMPLE LIPEMIA CHECK 0; SODIUM 141 MEQ/L (136-147); UREA NITROGEN (BUN) 8 mg/dL (9-23)
[2016-10-02 06:47] LABS: WHITE BLOOD COUNT 6.2 K/uL (4.1-10.2)
[2016-10-02 08:05] VITALS: BP 102/63
[2016-10-02 08:11] LABS: POINT-OF-CARE METER ID UU14174216
[2016-10-02 11:34] LABS: POINT-OF-CARE METER ID UU14174216
[2016-10-02] MEDS ORDERED: VENTOLIN HFA18 GM IH (13:25)
[2016-10-02] MEDS ORDERED: PLAVIX75 MG PO (13:25)
[2016-10-02] MEDS ORDERED: DIVALPROEX SOD500 M1 PO (13:25)
[2016-10-02] MEDS ORDERED: GLIPIZIDE5 MG PO (13:25)
[2016-10-02] MEDS ORDERED: SYNTHROID125 MCG PO (13:25)
[2016-10-02] MEDS ORDERED: KEPPRA750 MG PO (13:25)
[2016-10-02] MEDS ORDERED: ASPIR-LOW81 MG PO (13:25)
[2016-10-02] MEDS ORDERED: RISPERIDONE3 MG PO (13:25)
[2016-10-02] MEDS ORDERED: ATORVASTATIN CA40 MG PO (13:25)
[2016-10-02 16:17] LABS: POINT-OF-CARE METER ID UU13113781
== END 2016-10-02 18:05 | disposition home health service (06) | DRG 101 ==
LOC: EME 15:55 → 4EAST 21:27 → EDOF 21:27 → 4EAST 23:16
PROVIDERS: Emergency Medicine; Hospitalist; Internal Medicine
DX: G40.901 Epilepsy, unspecified, not intractable, with status epilepticus (principal); Z91.14 Patient's other noncompliance with medication regimen; E87.2 Acidosis; D72.829 Elevated white blood cell count, unspecified; J45.901 Unspecified asthma with (acute) exacerbation; J44.9 Chronic obstructive pulmonary disease, unspecified; I10 Essential (primary) hypertension; E11.9 Type 2 diabetes mellitus without complications; E03.9 Hypothyroidism, unspecified; I69.320 Aphasia following cerebral infarction; F31.9 Bipolar disorder, unspecified; D64.9 Anemia, unspecified; E78.5 Hyperlipidemia, unspecified; I45.6 Pre-excitation syndrome; F17.210 Nicotine dependence, cigarettes, uncomplicated; F12.10 Cannabis abuse, uncomplicated; F14.10 Cocaine abuse, uncomplicated; F16.10 Hallucinogen abuse, uncomplicated; Z91.419 Personal history of unspecified adult abuse
CPT/HCPCS: 70450; 71010; 80048; 80053; 80156; 80184; 80185; 80306 90; 81003; 82550; 82948; 83036; 83605; 85025; 85027; 87040; 99202; 99281; 99285; J1644; J1815; J1953; J2060; J7030; J7050

== ENCOUNTER 2016-10-02 19:27 | Emergency (ER) | payer SELFPAY ==
[~2016-10-02] VITALS: Ht 149.9 cm; Wt 72.5 kg
[~2016-10-02 19:27] MED LIST changes: +ATORVASTATIN CA40 MG PO; +KEPPRA750 MG PO; +VALPROIC ACID250 MG PO; +VENTOLIN HFA18 GM IH
[2016-10-02 21:45] VITALS: BP 110/65
== END 2016-10-02 21:47 | disposition home or self-care (01) ==
LOC: EME 19:27
DX: F32.9 Major depressive disorder, single episode, unspecified (principal); I10 Essential (primary) hypertension; F17.200 Nicotine dependence, unspecified, uncomplicated
CPT/HCPCS: 90839; 99281; 99284

== ENCOUNTER 2016-10-06 11:36 | Emergency (ER) | payer SELFPAY ==
[~2016-10-06] VITALS: Ht 149.9 cm; Wt 71.0 kg
[2016-10-06 12:29] LABS: CHLORIDE 102 mEq/L (99-109); POTASSIUM 3.5 mEq/L (3.7-5.4); SODIUM 141 mEq/L (136-147)
[2016-10-06 12:31] LABS: GLUCOSE 208 mg/dL (70-99)
[2016-10-06 12:32] LABS: ANION GAP 12 MEQ/L (2-14)
[2016-10-06 12:34] LABS: SERUM ETHYL ALCOHOL < 10 mg/dL
[2016-10-06 12:35] LABS: GFR ESTIMATE (CALCULATED) > 59 mL/min/
[2016-10-06 12:36] LABS: UREA NITROGEN (BUN) 13 mg/dL (9-23)
[2016-10-06 12:59] LABS: EOSINOPHIL (%) 1.7 % (0-5); EOSINOPHIL COUNT 0.1 K/uL (0-0.3); HEMATOCRIT 35.3 % (36.0-46.0); IMMATURE GRANULOCYTE (%) 0.5 % (0.0-0.7); INSTRUMENT ABS NEUTROPHIL CT 3.9 K/uL; LYMPHOCYTE COUNT 1.8 K/uL (1.0-2.8); MCH 28.6 PG (29.0-34.0); MCHC 31.2 G/DL (30.0-36.0); MCV 91.7 FL (83-99); MEAN PLAT.VOLUME 10.2 uM^3 (9.5-12.4); MONOCYTE (%) 9.6 % (3-12); MONOCYTE COUNT 0.6 K/uL (0-0.8); NEUTROPHIL (%) 59.4 % (45-76); NEUTROPHIL COUNT 3.9 K/uL (1.8-6.4); PLATELET COUNT 235 K/uL (156-360); RBC DIS.WIDTH-CV 15.2 % (11.8-14.6); RBC DIS.WIDTH-SD 51.1 % (39-53); RED BLOOD COUNT 3.85 M/uL (3.80-5.20); WHITE BLOOD COUNT 6.5 K/uL (4.1-10.2)
[2016-10-06 13:59] VITALS: BP 120/73
== END 2016-10-06 14:08 | disposition home or self-care (01) ==
LOC: EME → EDBD 11:36 → EME 14:08
PROVIDERS: Emergency Medicine
DX: F14.10 Cocaine abuse, uncomplicated (principal); R41.9 Unspecified symptoms and signs involving cognitive functions and awareness; F32.9 Major depressive disorder, single episode, unspecified; I10 Essential (primary) hypertension; F17.200 Nicotine dependence, unspecified, uncomplicated
CPT/HCPCS: 80048; 81003; 85025; 90839; 99281; 99284; G0480

== ENCOUNTER 2016-10-07 02:27 | Emergency (ER) | payer SELFPAY ==
[~2016-10-07] VITALS: Ht 149.9 cm; Wt 73.6 kg
[2016-10-07 07:12] LABS: HEMATOCRIT 36.7 % (36.0-46.0); MCH 28.5 PG (29.0-34.0); MCHC 31.3 G/DL (30.0-36.0); MCV 91.1 FL (83-99); PLATELET COUNT 212 K/uL (156-360); RBC DIS.WIDTH-CV 14.9 % (11.8-14.6); RED BLOOD COUNT 4.03 M/uL (3.80-5.20); WHITE BLOOD COUNT 7.4 K/uL (4.1-10.2)
[2016-10-07 07:32] LABS: CHLORIDE 99 mEq/L (99-109); POTASSIUM 3.6 mEq/L (3.7-5.4)
[2016-10-07 07:34] LABS: GLUCOSE 175 mg/dL (70-99)
[2016-10-07 07:36] LABS: ANION GAP 8 MEQ/L (2-14); TOTAL BILIRUBIN 0.6 mg/dL (0.0-1.0)
[2016-10-07 07:38] LABS: ALKALINE PHOSPHATASE 58 IU/L (3-129); GFR ESTIMATE (CALCULATED) > 59 mL/min/; QUANTITATIVE HCG < 4.0 MIU/ML
[2016-10-07 07:39] LABS: UREA NITROGEN (BUN) 10 mg/dL (9-23)
[2016-10-07 07:40] LABS: SODIUM 133 mEq/L (136-147)
[2016-10-07 07:41] LABS: LIPASE 5 U/L (1.0-51.0)
[2016-10-07 07:53] LABS: ADD MIUA? YES; BILIRUBIN NEGATIVE; BLOOD NEGATIVE; COLOR YELLOW ((YELLOW)); GLUCOSE (STRIP) >=500; KETONES 5; LEUKOCYTES NEGATIVE; NITRITE NEGATIVE; PROTEIN (STRIP) NEGATIVE; SPECIFIC GRAVITY 1.014 (1.000-1.030); UROBILINOGEN 0.2 MG/DL (0.2-1.0)
[2016-10-07 08:01] LABS: BACTERIA RARE /HPF; EPITHELIAL CELLS 1+ /HPF; MUCUS TRACE /LPF; RED BLOOD CELLS 0-5 /HPF (0-5); UCUL ADDED? NO; WHITE BLOOD CELLS 0-5 /HPF (0-5)
[2016-10-07 09:39] VITALS: BP 101/79
== END 2016-10-07 09:41 | disposition home or self-care (01) ==
LOC: EME 02:27
PROVIDERS: Emergency Medicine
DX: F19.10 Other psychoactive substance abuse, uncomplicated (principal); S30.1XXA Contusion of abdominal wall, initial encounter; S30.0XXA Contusion of lower back and pelvis, initial encounter; R10.9 Unspecified abdominal pain; S50.312A Abrasion of left elbow, initial encounter; Y04.8XXA Assault by other bodily force, initial encounter; Y07.03 Male partner, perpetrator of maltreatment and neglect; J45.909 Unspecified asthma, uncomplicated; Z86.73 Personal history of transient ischemic attack (TIA), and cerebral infarction without residual deficits
CPT/HCPCS: 72132; 74177; 80053; 81003; 83690; 84702; 85027; 93005; 99281; 99285; J1885; J2270; J7030

== ENCOUNTER 2016-10-08 08:13 | Observation (INO) | payer OTHER ==
[~2016-10-08] VITALS: Ht 149.9 cm; Wt 73.7 kg
[2016-10-08 12:12] LABS: EOSINOPHIL (%) 0.8 % (0-5); EOSINOPHIL COUNT 0.1 K/uL (0-0.3); HEMATOCRIT 35.9 % (36.0-46.0); IMMATURE GRANULOCYTE (%) 0.3 % (0.0-0.7); INSTRUMENT ABS NEUTROPHIL CT 5.9 K/uL; LYMPHOCYTE COUNT 1.3 K/uL (1.0-2.8); MCH 29.2 PG (29.0-34.0); MCHC 31.8 G/DL (30.0-36.0); MCV 91.8 FL (83-99); MEAN PLAT.VOLUME 10.2 uM^3 (9.5-12.4); MONOCYTE (%) 8.9 % (3-12); MONOCYTE COUNT 0.7 K/uL (0-0.8); NEUTROPHIL COUNT 5.9 K/uL (1.8-6.4); PLATELET COUNT 204 K/uL (156-360); RBC DIS.WIDTH-CV 14.5 % (11.8-14.6); RBC DIS.WIDTH-SD 48.7 % (39-53); RED BLOOD COUNT 3.91 M/uL (3.80-5.20)
[2016-10-08 16:58] VITALS: BP 117/62
[2016-10-08 20:00] VITALS: BP 139/63
[2016-10-08 23:23] VITALS: BP 139/96
[2016-10-09 07:25] LABS: HEMATOCRIT 36.7 % (36.0-46.0); MCH 28.6 PG (29.0-34.0); MCHC 31.6 G/DL (30.0-36.0); MCV 90.6 FL (83-99); MEAN PLAT.VOLUME 10.6 uM^3 (9.5-12.4); PLATELET COUNT 203 K/uL (156-360); RBC DIS.WIDTH-CV 14.5 % (11.8-14.6); RBC DIS.WIDTH-SD 48.8 % (39-53); RED BLOOD COUNT 4.05 M/uL (3.80-5.20)
[2016-10-09 07:34] LABS: WHITE BLOOD COUNT 4.8 K/uL (4.1-10.2)
[2016-10-09 07:35] VITALS: BP 125/62
[2016-10-09 07:39] LABS: ANION GAP 9 MEQ/L (2-14); CHLORIDE 107 MEQ/L (99-109); GFR ESTIMATE (CALCULATED) > 59 mL/min/; GLUCOSE 142 mg/dL (70-99); SAMPLE HEMOLYSIS CHECK 1; SAMPLE ICTERIC CHECK 0; SAMPLE LIPEMIA CHECK 0; UREA NITROGEN (BUN) 6 mg/dL (9-23)
[2016-10-09 07:42] LABS: POTASSIUM 4.2 MEQ/L (3.7-5.4); SODIUM 143 MEQ/L (136-147)
[2016-10-09 10:44] VITALS: BP 128/59
[2016-10-09 17:00] VITALS: BP 122/58; BP 139/75
[2016-10-09 20:00] VITALS: BP 99/54
[2016-10-10] VITALS: BP 112/57
[2016-10-10 06:58] VITALS: BP 105/69
[2016-10-10 08:46] LABS: POINT-OF-CARE METER ID UU13113831
[2016-10-10] MEDS ORDERED: LIDOCAINE700 MG TD (10:16)
== END 2016-10-10 10:42 | disposition home health service (06) ==
LOC: EME 08:13 → 5WEST 11:13 → EDOF 11:13 → 5WEST 16:47
PROVIDERS: Emergency Medicine; Hospitalist; Internal Medicine
DX: S22.42XA Multiple fractures of ribs, left side, initial encounter for closed fracture (principal); Y04.0XXA Assault by unarmed brawl or fight, initial encounter; F17.200 Nicotine dependence, unspecified, uncomplicated; F31.9 Bipolar disorder, unspecified; I69.320 Aphasia following cerebral infarction; E11.9 Type 2 diabetes mellitus without complications; J44.9 Chronic obstructive pulmonary disease, unspecified; I10 Essential (primary) hypertension; G40.909 Epilepsy, unspecified, not intractable, without status epilepticus; E03.9 Hypothyroidism, unspecified; E78.5 Hyperlipidemia, unspecified; E66.9 Obesity, unspecified
CPT/HCPCS: 71020; 71100; 80048; 82948; 84702; 85025; 85027; 94760; 99202; 99281; 99285; G0378; J2270

== ENCOUNTER 2016-10-11 15:41 | Emergency (ER) | payer OTHER ==
[~2016-10-11] VITALS: Ht 149.9 cm; Wt 75.2 kg
[~2016-10-11 15:41] MED LIST changes: +LIDOCAINE700 MG TD
[2016-10-11 16:53] VITALS: BP 110/62
[2016-10-12] MEDS ORDERED: PERCOCET 5/31 TABLET PO (06:35)
== END 2016-10-11 16:56 | disposition home or self-care (01) ==
LOC: EME 15:41
DX: M54.9 Dorsalgia, unspecified (principal); I69.920 Aphasia following unspecified cerebrovascular disease; F17.200 Nicotine dependence, unspecified, uncomplicated
CPT/HCPCS: 99281; 99284; J1885

== ENCOUNTER 2016-10-12 05:38 | Emergency (ER) | payer OTHER ==
[~2016-10-12] VITALS: Ht 149.9 cm; Wt 73.8 kg
[2016-10-12] MEDS ORDERED: PERCOCET 5/31 TABLET PO (06:35)
[2016-10-12 07:11] VITALS: BP 119/76
== END 2016-10-12 07:13 | disposition home or self-care (01) ==
LOC: EME 05:38
DX: S22.49XD Multiple fractures of ribs, unspecified side, subsequent encounter for fracture with routine healing (principal); R07.81 Pleurodynia; J45.909 Unspecified asthma, uncomplicated; I69.320 Aphasia following cerebral infarction; F17.200 Nicotine dependence, unspecified, uncomplicated
CPT/HCPCS: 71020; 99281; 99284

== ENCOUNTER 2016-10-15 05:44 | Emergency (ER) | payer OTHER ==
[~2016-10-15] VITALS: Ht 149.9 cm; Wt 70.8 kg
[~2016-10-15 05:44] MED LIST changes: +PERCOCET 5/31 TABLET PO
[2016-10-15 07:04] LABS: EOSINOPHIL (%) 3.2 % (0-5); EOSINOPHIL COUNT 0.2 K/uL (0-0.3); HEMATOCRIT 34.1 % (36.0-46.0); IMMATURE GRANULOCYTE (%) 0.5 % (0.0-0.7); LYMPHOCYTE COUNT 1.5 K/uL (1.0-2.8); MCH 28.6 PG (29.0-34.0); MCHC 31.7 G/DL (30.0-36.0); MCV 90.2 FL (83-99); MEAN PLAT.VOLUME 9.8 uM^3 (9.5-12.4); MONOCYTE COUNT 0.6 K/uL (0-0.8); NEUTROPHIL (%) 62.6 % (45-76); RBC DIS.WIDTH-CV 13.7 % (11.8-14.6); RBC DIS.WIDTH-SD 45.3 % (39-53); RED BLOOD COUNT 3.78 M/uL (3.80-5.20)
[2016-10-15 07:05] LABS: PLATELET COUNT 270 K/uL (156-360); WHITE BLOOD COUNT 6.3 K/uL (4.1-10.2)
[2016-10-15 07:28] LABS: ANION GAP 5 MEQ/L (2-14); CHLORIDE 105 MEQ/L (99-109); SAMPLE HEMOLYSIS CHECK 0; SAMPLE ICTERIC CHECK 0; SAMPLE LIPEMIA CHECK 0; SODIUM 141 MEQ/L (136-147)
[2016-10-15 07:36] LABS: GFR ESTIMATE (CALCULATED) > 59 mL/min/; GLUCOSE 152 mg/dL (70-99); UREA NITROGEN (BUN) 10 mg/dL (9-23)
[2016-10-15] MEDS ORDERED: TYLENOL WITH C1 EACH PO (09:00)
[2016-10-15 09:45] VITALS: BP 116/73
== END 2016-10-15 09:47 | disposition home or self-care (01) ==
LOC: EME 05:44
PROVIDERS: Emergency Medicine
DX: R10.9 Unspecified abdominal pain (principal); M54.9 Dorsalgia, unspecified; E11.9 Type 2 diabetes mellitus without complications; I10 Essential (primary) hypertension; E03.9 Hypothyroidism, unspecified; Z86.73 Personal history of transient ischemic attack (TIA), and cerebral infarction without residual deficits; F17.200 Nicotine dependence, unspecified, uncomplicated
CPT/HCPCS: 74177; 80048; 81003; 85025; 99281; 99285; J1885; J7030

== ENCOUNTER 2016-10-23 16:29 | Emergency (ER) | payer OTHER ==
[~2016-10-23] VITALS: Ht 149.9 cm; Wt 79.7 kg
[2016-10-23 17:30] LABS: ADD MIUA? YES; BILIRUBIN NEGATIVE; BLOOD NEGATIVE; COLOR YELLOW ((YELLOW)); GLUCOSE (STRIP) NEGATIVE; KETONES NEGATIVE; LEUKOCYTES NEGATIVE; NITRITE NEGATIVE; PROTEIN (STRIP) NEGATIVE; SPECIFIC GRAVITY 1.009 (1.000-1.030); UROBILINOGEN 0.2 MG/DL (0.2-1.0)
[2016-10-23 17:32] LABS: BACTERIA RARE /HPF; EPITHELIAL CELLS RARE /HPF; MUCUS NONE SEEN /LPF; RED BLOOD CELLS 0-5 /HPF (0-5); WHITE BLOOD CELLS 0-5 /HPF (0-5)
[2016-10-23 17:42] LABS: ADD MEDTOX COMMENT Y; AMPHETAMINE NEGATIVE (500 ng/mL); BARBITURATES NEGATIVE (200 ng/mL); BENZODIAZEPINES NEGATIVE (150 ng/mL); COCAINE PRESUMPTIVE POSITIVE (150 ng/mL); INTERNAL CONTROLS VALID? YES; METHADONE NEGATIVE (200 ng/mL); METHAMPHETAMINE NEGATIVE (500 ng/mL); OPIATES (MORPHINE) NEGATIVE (100 ng/mL); OXYCODONE NEGATIVE (100 ng/mL); PHENCYCLIDINE NEGATIVE (25 ng/mL); PROPOXYPHENE NEGATIVE (300 ng/mL); THC CANNABINOIDS NEGATIVE (50 ng/mL); TRICYCLIC ANTIDEPRESSANTS NEGATIVE (300 ng/mL)
[2016-10-23 17:52] LABS: HEMATOCRIT 37.5 % (36.0-46.0); MCH 28.5 PG (29.0-34.0); MCHC 31.2 G/DL (30.0-36.0); MCV 91.2 FL (83-99); MEAN PLAT.VOLUME 9.6 uM^3 (9.5-12.4); RBC DIS.WIDTH-CV 14.3 % (11.8-14.6); RBC DIS.WIDTH-SD 48.2 % (39-53); RED BLOOD COUNT 4.11 M/uL (3.80-5.20); WHITE BLOOD COUNT 8.1 K/uL (4.1-10.2)
[2016-10-23 17:53] LABS: PLATELET COUNT 380 K/uL (156-360)
[2016-10-23 18:02] LABS: CHLORIDE 101 mEq/L (99-109); POTASSIUM 4.6 mEq/L (3.7-5.4); SODIUM 141 mEq/L (136-147)
[2016-10-23 18:04] LABS: GLUCOSE 151 mg/dL (70-99)
[2016-10-23 18:05] LABS: ANION GAP 10 MEQ/L (2-14)
[2016-10-23 18:06] LABS: TOTAL BILIRUBIN 0.1 mg/dL (0.0-1.0)
[2016-10-23 18:07] LABS: SERUM ETHYL ALCOHOL < 10 mg/dL
[2016-10-23 18:08] LABS: ALKALINE PHOSPHATASE 127 IU/L (3-129); GFR ESTIMATE (CALCULATED) > 59 mL/min/
[2016-10-23 18:09] LABS: UREA NITROGEN (BUN) 12 mg/dL (9-23)
[2016-10-23 19:06] VITALS: BP 100/64
== END 2016-10-23 19:07 | disposition home or self-care (01) ==
LOC: EME 16:29
PROVIDERS: Emergency Medicine
DX: F31.9 Bipolar disorder, unspecified (principal); I10 Essential (primary) hypertension; J44.9 Chronic obstructive pulmonary disease, unspecified; J45.909 Unspecified asthma, uncomplicated; E11.9 Type 2 diabetes mellitus without complications; R56.9 Unspecified convulsions; I69.320 Aphasia following cerebral infarction; E03.9 Hypothyroidism, unspecified; F17.200 Nicotine dependence, unspecified, uncomplicated; Z79.84 Long term (current) use of oral hypoglycemic drugs
CPT/HCPCS: 80053; 81003; 84999; 85027; 90839; 99281; 99285; G0480

== ENCOUNTER 2016-10-24 13:16 | Emergency (ER) | payer OTHER ==
[~2016-10-24] VITALS: Ht 149.9 cm; Wt 76.4 kg
[2016-10-24 13:54] VITALS: BP 125/80
== END 2016-10-24 13:54 | disposition home or self-care (01) ==
LOC: EME 13:16
DX: F43.21 Adjustment disorder with depressed mood (principal); F33.9 Major depressive disorder, recurrent, unspecified; J45.909 Unspecified asthma, uncomplicated; E11.9 Type 2 diabetes mellitus without complications; J44.9 Chronic obstructive pulmonary disease, unspecified; I10 Essential (primary) hypertension; Z86.73 Personal history of transient ischemic attack (TIA), and cerebral infarction without residual deficits; F17.200 Nicotine dependence, unspecified, uncomplicated
CPT/HCPCS: 90832; 99281; 99284

== ENCOUNTER 2016-11-10 08:35 | Emergency (ER) | payer OTHER ==
[~2016-11-10] VITALS: Ht 149.9 cm; Wt 69.0 kg
[2016-11-10 10:12] LABS: CHLORIDE 103 mEq/L (99-109); MCH 28.6 PG (29.0-34.0); MCV 89.3 FL (83-99); POTASSIUM 4.2 mEq/L (3.7-5.4); RBC DIS.WIDTH-CV 13.6 % (11.8-14.6); RBC DIS.WIDTH-SD 44.4 % (39-53); SODIUM 140 mEq/L (136-147)
[2016-11-10 10:14] LABS: GLUCOSE 153 mg/dL (70-99)
[2016-11-10 10:15] LABS: ANION GAP 11 MEQ/L (2-14)
[2016-11-10 10:16] LABS: RED BLOOD COUNT 5.04 M/uL (3.80-5.20); WHITE BLOOD COUNT 10.7 K/uL (4.1-10.2)
[2016-11-10 10:18] LABS: EOSINOPHIL (%) 0.7 % (0-5); EOSINOPHIL COUNT 0.1 K/uL (0-0.3); GFR ESTIMATE (CALCULATED) > 59 mL/min/; IMMATURE GRANULOCYTE (%) 0.4 % (0.0-0.7); INSTRUMENT ABS NEUTROPHIL CT 9.1 K/uL; LYMPHOCYTE COUNT 1.1 K/uL (1.0-2.8); MONOCYTE (%) 3.5 % (3-12); MONOCYTE COUNT 0.4 K/uL (0-0.8); NEUTROPHIL (%) 85.2 % (45-76); NEUTROPHIL COUNT 9.1 K/uL (1.8-6.4); UREA NITROGEN (BUN) 9 mg/dL (9-23)
[2016-11-10 10:39] LABS: PLAT.SUFFICIENCY ADEQUATE
[2016-11-10 10:41] LABS: PLATELET COUNT 216 K/uL (156-360)
[2016-11-10 13:51] VITALS: BP 178/102
== END 2016-11-10 13:52 | disposition home or self-care (01) ==
LOC: EME 08:35
PROVIDERS: Emergency Medicine
DX: G40.909 Epilepsy, unspecified, not intractable, without status epilepticus (principal); T42.6X6A Underdosing of other antiepileptic and sedative-hypnotic drugs, initial encounter; I69.320 Aphasia following cerebral infarction; E11.9 Type 2 diabetes mellitus without complications; I10 Essential (primary) hypertension; Z91.128 Patient's intentional underdosing of medication regimen for other reason; F17.200 Nicotine dependence, unspecified, uncomplicated; Z88.8 Allergy status to other drugs, medicaments and biological substances
CPT/HCPCS: 80048; 80164; 85025; 99281; 99285

== ENCOUNTER 2016-12-21 06:56 | Emergency (ER) | payer OTHER ==
[~2016-12-21] VITALS: Ht 149.9 cm; Wt 71.4 kg
[2016-12-21 07:54] LABS: BASOPHIL COUNT 0.1 K/uL (0-0.1); EOSINOPHIL (%) 0.1 % (0-5); HEMATOCRIT 46.6 % (36.0-46.0); IMMATURE GRANULOCYTE (%) 0.4 % (0.0-0.7); IMMATURE GRANULOCYTE COUNT 0.1 K/uL; LYMPHOCYTE COUNT 1.2 K/uL (1.0-2.8); MCH 28.7 PG (29.0-34.0); MCHC 33.3 G/DL (30.0-36.0); MCV 86.1 FL (83-99); MEAN PLAT.VOLUME 10.1 uM^3 (9.5-12.4); MONOCYTE (%) 2.9 % (3-12); MONOCYTE COUNT 0.4 K/uL (0-0.8); NEUTROPHIL (%) 88.2 % (45-76); PLATELET COUNT 331 K/uL (156-360); RBC DIS.WIDTH-CV 12.1 % (11.8-14.6); RBC DIS.WIDTH-SD 38.3 % (39-53); RED BLOOD COUNT 5.41 M/uL (3.80-5.20); WHITE BLOOD COUNT 14.7 K/uL (4.1-10.2)
[2016-12-21 08:03] LABS: CHLORIDE 97 mEq/L (99-109); POTASSIUM 4.2 mEq/L (3.7-5.4); SODIUM 135 mEq/L (136-147)
[2016-12-21 08:05] LABS: GLUCOSE 331 mg/dL (70-99)
[2016-12-21 08:06] LABS: ANION GAP 21 MEQ/L (2-14)
[2016-12-21 08:09] LABS: GFR ESTIMATE (CALCULATED) > 59 mL/min/
[2016-12-21 08:10] LABS: UREA NITROGEN (BUN) 8 mg/dL (9-23)
[2016-12-21 10:19] LABS: POINT-OF-CARE METER ID UU13113702
[2016-12-21 10:59] VITALS: BP 153/79
== END 2016-12-21 11:00 | disposition home or self-care (01) ==
LOC: EME 06:56
PROVIDERS: Emergency Medicine
DX: R56.9 Unspecified convulsions (principal); E11.65 Type 2 diabetes mellitus with hyperglycemia; J44.9 Chronic obstructive pulmonary disease, unspecified; I10 Essential (primary) hypertension; E03.9 Hypothyroidism, unspecified; F31.9 Bipolar disorder, unspecified; Z86.73 Personal history of transient ischemic attack (TIA), and cerebral infarction without residual deficits; F17.200 Nicotine dependence, unspecified, uncomplicated
CPT/HCPCS: 80048; 80164; 82948; 85025; 99281; 99284; J1953; J2405; J7030; J7050

== ENCOUNTER 2017-01-06 18:06 | Emergency (ER) | payer OTHER ==
[~2017-01-06] VITALS: Ht 149.9 cm; Wt 72.0 kg
[2017-01-06 18:40] LABS: HEMATOCRIT 42.6 % (36.0-46.0); MCHC 31.5 G/DL (30.0-36.0); MCV 88.9 FL (83-99); RBC DIS.WIDTH-CV 12.3 % (11.8-14.6); RBC DIS.WIDTH-SD 39.9 % (39-53); RED BLOOD COUNT 4.79 M/uL (3.80-5.20); WHITE BLOOD COUNT 7.4 K/uL (4.1-10.2)
[2017-01-06 18:52] LABS: CHLORIDE 99 mEq/L (99-109); SODIUM 139 mEq/L (136-147)
[2017-01-06 18:54] LABS: GLUCOSE 131 mg/dL (70-99)
[2017-01-06 18:57] LABS: ANION GAP 7 MEQ/L (2-14); TOTAL BILIRUBIN 0.2 mg/dL (0.0-1.0)
[2017-01-06 18:58] LABS: ALKALINE PHOSPHATASE 85 IU/L (3-129); GFR ESTIMATE (CALCULATED) > 59 mL/min/
[2017-01-06 18:59] LABS: UREA NITROGEN (BUN) 14 mg/dL (9-23)
[2017-01-06 19:19] LABS: MEAN PLAT.VOLUME 10.2 uM^3 (9.5-12.4); PLAT.SUFFICIENCY ADEQUATE
[2017-01-06 19:20] LABS: PLATELET COUNT 222 K/uL (156-360)
[2017-01-06 20:34] LABS: ADD MIUA? YES; BILIRUBIN NEGATIVE; BLOOD NEGATIVE; COLOR YELLOW ((YELLOW)); GLUCOSE (STRIP) NEGATIVE; KETONES NEGATIVE; LEUKOCYTES NEGATIVE; NITRITE NEGATIVE; PROTEIN (STRIP) NEGATIVE; SPECIFIC GRAVITY 1.009 (1.000-1.030); UROBILINOGEN 0.2 MG/DL (0.2-1.0)
[2017-01-06 20:42] LABS: BACTERIA RARE /HPF; EPITHELIAL CELLS 2+ /HPF; MUCUS NONE SEEN /LPF; UCUL ADDED? NO; WHITE BLOOD CELLS 0-5 /HPF (0-5)
[2017-01-06 20:48] LABS: AMPHETAMINE NEGATIVE (500 ng/mL); BARBITURATES NEGATIVE (200 ng/mL); BENZODIAZEPINES NEGATIVE (150 ng/mL); COCAINE NEGATIVE (150 ng/mL); INTERNAL CONTROLS VALID? YES; METHADONE NEGATIVE (200 ng/mL); METHAMPHETAMINE NEGATIVE (500 ng/mL); OPIATES (MORPHINE) NEGATIVE (100 ng/mL); OXYCODONE NEGATIVE (100 ng/mL); PHENCYCLIDINE NEGATIVE (25 ng/mL); PROPOXYPHENE NEGATIVE (300 ng/mL); THC CANNABINOIDS PRESUMPTIVE POSITIVE (50 ng/mL); TRICYCLIC ANTIDEPRESSANTS NEGATIVE (300 ng/mL)
[2017-01-06 20:49] LABS: ADD MEDTOX COMMENT Y
[2017-01-06 20:51] LABS: INTERNAL CONTROL VALID? YES
[2017-01-06 23:01] VITALS: BP 106/66
== END 2017-01-06 23:02 | disposition home or self-care (01) ==
LOC: EME 18:06
PROVIDERS: Emergency Medicine
DX: F12.10 Cannabis abuse, uncomplicated (principal); I69.920 Aphasia following unspecified cerebrovascular disease; I10 Essential (primary) hypertension; J44.9 Chronic obstructive pulmonary disease, unspecified; I45.10 Unspecified right bundle-branch block; F32.9 Major depressive disorder, single episode, unspecified; E11.9 Type 2 diabetes mellitus without complications; E03.9 Hypothyroidism, unspecified; E66.9 Obesity, unspecified; Z68.32 Body mass index [BMI] 32.0-32.9, adult; F17.200 Nicotine dependence, unspecified, uncomplicated; Z79.84 Long term (current) use of oral hypoglycemic drugs
CPT/HCPCS: 70450; 80053; 81003; 84703; 84999; 85027; 93005; 99281; 99284

== ENCOUNTER 2017-11-16 11:54 | Inpatient (IN) | payer OTHER ==
[~2017-11-16] VITALS: Ht 152.4 cm; Wt 79.8 kg
[2017-11-16 12:14] LABS: HEMATOCRIT 52.4 % (36.0-46.0); HEMOGLOBIN 16.9 G/DL (11.9-15.5); MCH 30.6 PG (29.0-34.0); MCHC 32.3 G/DL (30.0-36.0); MCV 94.9 FL (83-99); RBC DIS.WIDTH-CV 12.8 % (11.8-14.6); RBC DIS.WIDTH-SD 45.2 % (39-53); RED BLOOD COUNT 5.52 M/uL (3.80-5.20); WHITE BLOOD COUNT 19.4 K/uL (4.1-10.2)
[2017-11-16 12:25] LABS: CHLORIDE 102 mEq/L (99-109); POTASSIUM 3.8 mEq/L (3.7-5.4); SODIUM 142 mEq/L (136-147)
[2017-11-16 12:26] LABS: GLUCOSE 294 mg/dL (70-99)
[2017-11-16 12:27] LABS: PLATELET COUNT 291 K/uL (156-360)
[2017-11-16 12:30] LABS: CREATININE 0.8 mg/dL (0.6-1.3); GFR ESTIMATE (CALCULATED) > 59 mL/min/
[2017-11-16 12:31] LABS: UREA NITROGEN (BUN) 6 mg/dL (9-23)
[2017-11-16 12:35] LABS: TROP-I INTERPRETATION NEGATIVE; TROPONIN-I < 0.01 ng/mL (0.0-0.30)
[2017-11-16 12:58] LABS: CARBON DIOXIDE (BICARBONATE) 23.8 MEQ/L (20-31)
[2017-11-16 13:49] LABS: BASE EXCESS -3.4 mEq/L (-3 to +3); CARBOXY HGB 4.4 % (0-5); METHEMOGLOBIN 1.2 % (0-1.5); PCO2 51 mm Hg (35-45); PO2 70 mm Hg (80-100); pH 7.28 (7.35-7.45)
[2017-11-16 13:50] LABS: DEVICE 840 PB; FI02 100 %; MECHANICAL RATE 18 resp/min; MODE AC; O2 FLOW 60 L/MIN; PEEP 5 CM/H20; SITE LR; TIDAL VOLUME 400 ML; TOTAL RESP RATE 18 resp/min
[2017-11-16 15:00] VITALS: BP 134/74
[2017-11-16 17:00] VITALS: BP 100/63
[2017-11-16 18:00] VITALS: BP 144/95
[2017-11-16 20:00] VITALS: BP 149/88
[2017-11-17] VITALS (16 sets, daily range): BP systolic 103–153; BP diastolic 64–96
[2017-11-17 05:48] LABS: BASE EXCESS 3.1 mEq/L (-3 to +3); CARBOXY HGB 2.1 % (0-5); COMMENTS - BLOOD GASES C+; DEVICE VENT; FI02 30 %; MECHANICAL RATE 18 resp/min; METHEMOGLOBIN 1.7 % (0-1.5); MODE ACVC; PCO2 38 mm Hg (35-45); PEEP 5 CM/H20; PO2 54 mm Hg (80-100); SITE LR; TIDAL VOLUME 400 ML; TOTAL RESP RATE 22 resp/min; pH 7.46 (7.35-7.45)
[2017-11-17 06:16] LABS: BASOPHIL (%) 0.3 % (0-1); EOSINOPHIL (%) 0 % (0-5); HEMATOCRIT 45.5 % (36.0-46.0); IMMATURE GRANULOCYTE (%) 0.6 % (0.0-0.7); LYMPHOCYTE (%) 9.7 % (15-42); LYMPHOCYTE COUNT 1.4 K/uL (1.0-2.8); MCH 29.3 PG (29.0-34.0); MCHC 32.3 G/DL (30.0-36.0); MONOCYTE (%) 5.2 % (3-12); MONOCYTE COUNT 0.8 K/uL (0-0.8); NEUTROPHIL (%) 84.2 % (45-76); NEUTROPHIL COUNT 12.1 K/uL (1.8-6.4); RBC DIS.WIDTH-CV 12.8 % (11.8-14.6); RBC DIS.WIDTH-SD 42.5 % (39-53); RED BLOOD COUNT 5.01 M/uL (3.80-5.20); WHITE BLOOD COUNT 14.4 K/uL (4.1-10.2)
[2017-11-17 06:17] LABS: CHLORIDE 105 MEQ/L (99-109); CREATININE 0.5 MG/DL (0.6-1.3); GFR ESTIMATE (CALCULATED) > 59 mL/min/; GLUCOSE 166 mg/dL (70-99); MAGNESIUM 1.6 mg/dl (1.3-2.7); PHOSPHORUS 1.9 mg/dL (2.5-4.9); POTASSIUM 3.3 MEQ/L (3.7-5.4); SODIUM 142 MEQ/L (136-147); UREA NITROGEN (BUN) 4 mg/dL (9-23)
[2017-11-17 06:54] LABS: HEMOGLOBIN 14.7 G/DL (11.9-15.5); MCV 90.8 FL (83-99); PLATELET COUNT 200 K/uL (156-360)
[2017-11-17] MEDS ORDERED: DIVALPROEX SOD500 M1 PO (09:14)
[2017-11-17] MEDS ORDERED: ESCITALOPRAM OX20 MG PO (09:15)
[2017-11-17] MEDS ORDERED: GLIPIZIDE5 MG PO (09:15)
[2017-11-17] MEDS ORDERED: LEVETIRACETAM1000 MG PO (09:15)
[2017-11-17] MEDS ORDERED: LEVOTHYROXINE100 MCG PO (09:16)
[2017-11-17] MEDS ORDERED: ATORVASTATIN CA40 MG PO (09:16)
[2017-11-18] VITALS (10 sets, daily range): BP systolic 142–170; BP diastolic 86–133
[2017-11-18 05:09] LABS: BASOPHIL (%) 0.5 % (0-1); BASOPHIL COUNT 0.1 K/uL (0-0.1); EOSINOPHIL (%) 1.1 % (0-5); EOSINOPHIL COUNT 0.1 K/uL (0-0.3); HEMOGLOBIN 13.2 G/DL (11.9-15.5); IMMATURE GRANULOCYTE (%) 0.3 % (0.0-0.7); LYMPHOCYTE (%) 24.3 % (15-42); LYMPHOCYTE COUNT 2.6 K/uL (1.0-2.8); MCH 29.7 PG (29.0-34.0); MCHC 32.2 G/DL (30.0-36.0); MCV 92.3 FL (83-99); MONOCYTE (%) 5.9 % (3-12); MONOCYTE COUNT 0.6 K/uL (0-0.8); NEUTROPHIL (%) 67.9 % (45-76); NEUTROPHIL COUNT 7.4 K/uL (1.8-6.4); PLATELET COUNT 161 K/uL (156-360); RBC DIS.WIDTH-SD 43.9 % (39-53); RED BLOOD COUNT 4.44 M/uL (3.80-5.20); WHITE BLOOD COUNT 10.8 K/uL (4.1-10.2)
[2017-11-18 06:23] LABS: CHLORIDE 110 MEQ/L (99-109); CREATININE 0.4 MG/DL (0.6-1.3); GFR ESTIMATE (CALCULATED) > 59 mL/min/; SODIUM 145 MEQ/L (136-147); UREA NITROGEN (BUN) 3 mg/dL (9-23)
[2017-11-18 06:24] LABS: GLUCOSE 98 mg/dL (70-99); MAGNESIUM 2.2 mg/dl (1.3-2.7); PHOSPHORUS 2.6 mg/dL (2.5-4.9)
[2017-11-18 18:59] LABS: APPEARANCE CLEAR ((CLEAR)); BILIRUBIN NEGATIVE; BLOOD MODERATE; COLOR STRAW ((YELLOW)); GLUCOSE (STRIP) NEGATIVE; KETONES 20; LEUKOCYTES SMALL; NITRITE NEGATIVE; PROTEIN (STRIP) NEGATIVE; SPECIFIC GRAVITY 1.004 (1.000-1.030); UROBILINOGEN 0.2 MG/DL (0.2-1.0)
[2017-11-18 19:17] LABS: BACTERIA RARE /HPF; EPITHELIAL CELLS 1+ /HPF; MUCUS NONE SEEN /LPF
[2017-11-19 04:19] VITALS: BP 150/76
[2017-11-19 07:38] VITALS: BP 170/113
[2017-11-19 09:15] VITALS: BP 184/95
[2017-11-19 10:21] LABS: BASOPHIL (%) 0.7 % (0-1); BASOPHIL COUNT 0.1 K/uL (0-0.1); EOSINOPHIL (%) 0.2 % (0-5); HEMATOCRIT 48.9 % (36.0-46.0); IMMATURE GRANULOCYTE (%) 0.3 % (0.0-0.7); LYMPHOCYTE (%) 11.1 % (15-42); LYMPHOCYTE COUNT 1.1 K/uL (1.0-2.8); MCH 29.5 PG (29.0-34.0); MCHC 32.1 G/DL (30.0-36.0); MCV 91.9 FL (83-99); MONOCYTE (%) 3.4 % (3-12); MONOCYTE COUNT 0.4 K/uL (0-0.8); NEUTROPHIL (%) 84.3 % (45-76); NEUTROPHIL COUNT 8.7 K/uL (1.8-6.4); RBC DIS.WIDTH-CV 12.6 % (11.8-14.6); RED BLOOD COUNT 5.32 M/uL (3.80-5.20); WHITE BLOOD COUNT 10.3 K/uL (4.1-10.2)
[2017-11-19 10:23] LABS: HEMOGLOBIN 15.7 G/DL (11.9-15.5); PLATELET COUNT 210 K/uL (156-360)
[2017-11-19 10:45] LABS: CHLORIDE 103 MEQ/L (99-109); CREATININE 0.5 MG/DL (0.6-1.3); GFR ESTIMATE (CALCULATED) > 59 mL/min/; MAGNESIUM 1.9 mg/dl (1.3-2.7); POTASSIUM 3.4 MEQ/L (3.7-5.4); SODIUM 142 MEQ/L (136-147); UREA NITROGEN (BUN) 5 mg/dL (9-23)
[2017-11-19 10:51] LABS: GLUCOSE 219 mg/dL (70-99)
[2017-11-19 11:33] LABS: ALBUMIN 3.9 G/DL (3.2-4.8); ALKALINE PHOSPHATASE 83 IU/L (3-129); ALT (GPT) 6 IU/L (3-49); AST (GOT) 8 IU/L (2-34); DIRECT BILIRUBIN 0.1 mg/dL (0.0-0.3); LIPASE 4 U/L (1.0-51.0); TOTAL BILIRUBIN 0.7 MG/DL (0.0-1.0); TOTAL PROTEIN 6.8 G/DL (6.4-8.3)
[2017-11-19 13:24] VITALS: BP 143/85
[2017-11-19 16:00] VITALS: BP 152/65
[2017-11-19 20:07] VITALS: BP 127/63
[2017-11-20 01:12] VITALS: BP 124/67
[2017-11-20 04:00] VITALS: BP 114/56
[2017-11-20 06:31] LABS: BASOPHIL (%) 0.8 % (0-1); BASOPHIL COUNT 0.1 K/uL (0-0.1); EOSINOPHIL (%) 1.6 % (0-5); EOSINOPHIL COUNT 0.1 K/uL (0-0.3); IMMATURE GRANULOCYTE (%) 0.1 % (0.0-0.7); LYMPHOCYTE (%) 38.7 % (15-42); MCH 30.2 PG (29.0-34.0); MCHC 32.1 G/DL (30.0-36.0); MONOCYTE (%) 6.3 % (3-12); MONOCYTE COUNT 0.5 K/uL (0-0.8); NEUTROPHIL (%) 52.5 % (45-76); PLATELET COUNT 186 K/uL (156-360); RBC DIS.WIDTH-CV 12.6 % (11.8-14.6); RBC DIS.WIDTH-SD 43.8 % (39-53); RED BLOOD COUNT 4.47 M/uL (3.80-5.20); WHITE BLOOD COUNT 7.6 K/uL (4.1-10.2)
[2017-11-20 06:33] LABS: HEMOGLOBIN 13.5 G/DL (11.9-15.5)
[2017-11-20 06:38] LABS: ALT (GPT) 4 IU/L (3-49); AST (GOT) < 7 IU/L (2-34); CHLORIDE 106 MEQ/L (99-109); CREATININE 0.5 MG/DL (0.6-1.3); DIRECT BILIRUBIN 0.1 mg/dL (0.0-0.3); GFR ESTIMATE (CALCULATED) > 59 mL/min/; MAGNESIUM 1.8 mg/dl (1.3-2.7); POTASSIUM 3.8 MEQ/L (3.7-5.4); SODIUM 145 MEQ/L (136-147); UREA NITROGEN (BUN) 8 mg/dL (9-23)
[2017-11-20 06:41] LABS: ALKALINE PHOSPHATASE 49 IU/L (3-129); GLUCOSE 103 mg/dL (70-99); TOTAL BILIRUBIN 0.5 MG/DL (0.0-1.0); TOTAL PROTEIN 5.3 G/DL (6.4-8.3)
[2017-11-20 07:32] VITALS: BP 114/65
[2017-11-20] MEDS ORDERED: AMOX TR-K CLV1 EAC4 PO (10:27)
[2017-11-20] MEDS ORDERED: DIVALPROEX SOD500 M1 PO (10:27)
[2017-11-20] MEDS ORDERED: LISINOPRIL20 MG PO (10:27)
[2017-11-20] MEDS ORDERED: LEVETIRACETAM1000 MG PO (10:27)
== END 2017-11-20 14:37 | disposition home health service (06) | DRG 100 ==
LOC: EME 11:54 → ENRESERV 13:27 → CANRESERV 13:27 → EDOF 13:36 → 4WEST 13:36 → ENRESERV 13:43 → 4WEST 15:15 → ENRESERV 11-18 16:15 → 5EAST 11-18 18:55 → ENRESERV 11-19 → 5EAST 11-19 15:05
PROVIDERS: Emergency Medicine; Family Medicine; Hospitalist; Physician Assistant; Specialist
PROC: 0BH17EZ Insertion of Endotracheal Airway into Trachea, Via Natural or Artificial Opening (ICD-10-PCS; principal; 2017-11-16)
PROC: 5A1945Z Respiratory Ventilation, 24-96 Consecutive Hours (ICD-10-PCS; principal; 2017-11-16)
DX: G40.901 Epilepsy, unspecified, not intractable, with status epilepticus (principal); J96.00 Acute respiratory failure, unspecified whether with hypoxia or hypercapnia; J69.0 Pneumonitis due to inhalation of food and vomit; Z91.14 Patient's other noncompliance with medication regimen; J98.11 Atelectasis; I69.320 Aphasia following cerebral infarction; I10 Essential (primary) hypertension; G93.89 Other specified disorders of brain; E87.6 Hypokalemia; F31.9 Bipolar disorder, unspecified; F17.200 Nicotine dependence, unspecified, uncomplicated; F12.90 Cannabis use, unspecified, uncomplicated; E11.9 Type 2 diabetes mellitus without complications; E03.9 Hypothyroidism, unspecified; F41.9 Anxiety disorder, unspecified; R00.0 Tachycardia, unspecified
CPT/HCPCS: 36600; 70450; 71045; 71046; 71250; 72125; 74019; 74176; 80048; 80076; 81003; 82803; 82948; 83605; 83690; 83735; 83880; 84100; 84484; 85025; 85027; 87040; 87070; 87076; 87205; 87641; 87801; 93005; 94002; 94003; 94640; 94640 76; 94799; 95819; 99202; 99281; 99285; J0360; J1644; J1953; J2060; J2250; J2405; J2543; J2704; J3475; J3480; J7030; J7050

== ENCOUNTER 2017-12-15 00:01 | Emergency (ER) | payer OTHER ==
[~2017-12-15] VITALS: Ht 149.9 cm; Wt 79.3 kg
[~2017-12-15 00:01] MED LIST changes: +AMOX TR-K CLV1 EAC4 PO; +ESCITALOPRAM OX20 MG PO; +LEVETIRACETAM1000 MG PO; +LEVOTHYROXINE100 MCG PO; +LISINOPRIL20 MG PO
[2017-12-15 04:03] VITALS: BP 137/77
== END 2017-12-15 04:05 | disposition home or self-care (01) ==
LOC: EME 00:01
DX: F32.9 Major depressive disorder, single episode, unspecified (principal); I10 Essential (primary) hypertension; J44.9 Chronic obstructive pulmonary disease, unspecified; E11.9 Type 2 diabetes mellitus without complications; I69.320 Aphasia following cerebral infarction; E03.9 Hypothyroidism, unspecified; F12.10 Cannabis abuse, uncomplicated; F17.200 Nicotine dependence, unspecified, uncomplicated; Z79.84 Long term (current) use of oral hypoglycemic drugs
CPT/HCPCS: 90839; 99281; 99282

== ENCOUNTER 2018-01-16 14:13 | Emergency (ER) | payer OTHER ==
[~2018-01-16] VITALS: Ht 149.9 cm; Wt 70.9 kg
[2018-01-16 14:43] LABS: HEMATOCRIT 44.8 % (36.0-46.0); HEMOGLOBIN 14.9 G/DL (11.9-15.5); MCH 29.8 PG (29.0-34.0); MCHC 33.3 G/DL (30.0-36.0); MCV 89.6 FL (83-99); PLATELET COUNT 196 K/uL (156-360); RBC DIS.WIDTH-CV 12.3 % (11.8-14.6)
[2018-01-16 14:57] LABS: ALBUMIN 3.8 g/dL (3.2-4.8); CHLORIDE 108 mEq/L (99-109); POTASSIUM 3.8 mEq/L (3.7-5.4); SODIUM 144 mEq/L (136-147)
[2018-01-16 15:00] LABS: GLUCOSE 194 mg/dL (70-99); TOTAL PROTEIN 6.4 g/dL (6.4-8.3)
[2018-01-16 15:02] LABS: TOTAL BILIRUBIN 0.5 mg/dL (0.0-1.0)
[2018-01-16 15:03] LABS: ALKALINE PHOSPHATASE 85 IU/L (3-129); SERUM ETHYL ALCOHOL < 10 mg/dL
[2018-01-16 15:04] LABS: CREATININE 0.7 mg/dL (0.6-1.3); GFR ESTIMATE (CALCULATED) > 59 mL/min/
[2018-01-16 15:05] LABS: AST (GOT) < 5 IU/L (2-34); UREA NITROGEN (BUN) 8 mg/dL (9-23)
[2018-01-16 15:06] LABS: ALT (GPT) 9 IU/L (3-49)
[2018-01-16 15:12] LABS: QUANTITATIVE HCG < 4.0 MIU/ML
[2018-01-16 15:40] VITALS: BP 170/95
== END 2018-01-16 15:55 | disposition home or self-care (01) ==
LOC: EME 14:13
PROVIDERS: Emergency Medicine
DX: F32.9 Major depressive disorder, single episode, unspecified (principal); F19.10 Other psychoactive substance abuse, uncomplicated; F31.9 Bipolar disorder, unspecified; I10 Essential (primary) hypertension; E11.9 Type 2 diabetes mellitus without complications; J44.9 Chronic obstructive pulmonary disease, unspecified; E03.9 Hypothyroidism, unspecified; F41.9 Anxiety disorder, unspecified; F17.200 Nicotine dependence, unspecified, uncomplicated; Z86.73 Personal history of transient ischemic attack (TIA), and cerebral infarction without residual deficits; Z88.8 Allergy status to other drugs, medicaments and biological substances
CPT/HCPCS: 80053; 81003; 84702; 85027; 90839; 99281; 99285; G0480

== ENCOUNTER 2018-02-13 08:32 | Inpatient (IN) | payer OTHER ==
[~2018-02-13] VITALS: Ht 157.5 cm; Wt 81.0 kg
[2018-02-13] VITALS (14 sets, daily range): BP systolic 87–128; BP diastolic 62–93
[2018-02-13 09:35] LABS: BASOPHIL (%) 0.4 % (0-1); BASOPHIL COUNT 0.1 K/uL (0-0.1); EOSINOPHIL (%) 1.2 % (0-5); EOSINOPHIL COUNT 0.2 K/uL (0-0.3); HEMATOCRIT 48.5 % (36.0-46.0); HEMOGLOBIN 15.6 G/DL (11.9-15.5); IMMATURE GRANULOCYTE (%) 0.4 % (0.0-0.7); LYMPHOCYTE (%) 18.6 % (15-42); MCH 29.8 PG (29.0-34.0); MCHC 32.2 G/DL (30.0-36.0); MCV 92.7 FL (83-99); MONOCYTE (%) 4.3 % (3-12); MONOCYTE COUNT 0.7 K/uL (0-0.8); NEUTROPHIL (%) 75.1 % (45-76); PLATELET COUNT 225 K/uL (156-360); RBC DIS.WIDTH-CV 12.4 % (11.8-14.6); RBC DIS.WIDTH-SD 42.4 % (39-53); RED BLOOD COUNT 5.23 M/uL (3.80-5.20)
[2018-02-13 09:37] LABS: APPEARANCE CLEAR ((CLEAR)); BILIRUBIN NEGATIVE; BLOOD SMALL; COLOR YELLOW ((YELLOW)); GLUCOSE (STRIP) >=500; KETONES 20; LEUKOCYTES NEGATIVE; NITRITE NEGATIVE; PROTEIN (STRIP) >=500; SPECIFIC GRAVITY 1.015 (1.000-1.030); UROBILINOGEN 0.2 MG/DL (0.2-1.0)
[2018-02-13 09:41] LABS: BACTERIA NONE SEEN /HPF; EPITHELIAL CELLS RARE /HPF; HYALINE CASTS 0-5 /LPF; MUCUS TRACE /LPF; RED BLOOD CELLS 0-5 /HPF (0-5); WHITE BLOOD CELLS 0-5 /HPF (0-5)
[2018-02-13 09:44] LABS: CHLORIDE 104 mEq/L (99-109); POTASSIUM 3.5 mEq/L (3.7-5.4); SODIUM 141 mEq/L (136-147)
[2018-02-13 09:46] LABS: GLUCOSE 217 mg/dL (70-99)
[2018-02-13 09:47] LABS: AMPHETAMINE NEGATIVE (500 ng/mL); BARBITURATES NEGATIVE (200 ng/mL); BENZODIAZEPINES NEGATIVE (150 ng/mL); BUPRENORPHINE NEGATIVE (10 ng/mL); COCAINE NEGATIVE (150 ng/mL); METHADONE NEGATIVE (200 ng/mL); METHAMPHETAMINE NEGATIVE (500 ng/mL); OPIATES (MORPHINE) NEGATIVE (100 ng/mL); OXYCODONE NEGATIVE (100 ng/mL); PHENCYCLIDINE NEGATIVE (25 ng/mL); PROPOXYPHENE NEGATIVE (300 ng/mL); THC CANNABINOIDS NEGATIVE (50 ng/mL); TRICYCLIC ANTIDEPRESSANTS NEGATIVE (300 ng/mL)
[2018-02-13 09:50] LABS: CREATININE 0.7 mg/dL (0.6-1.3); GFR ESTIMATE (CALCULATED) > 59 mL/min/
[2018-02-13 09:51] LABS: UREA NITROGEN (BUN) 6 mg/dL (9-23)
[2018-02-13 10:02] LABS: SITE RR
[2018-02-13 10:03] LABS: COMMENTS - BLOOD GASES NAC+; DEVICE VENT; FI02 40 %; MECHANICAL RATE 20 resp/min; MODE A/C; PCO2 44 mm Hg (35-45); PEEP 5 CM/H20; PO2 63 mm Hg (80-100); TIDAL VOLUME 450 ML; TOTAL RESP RATE 20 resp/min; pH 7.37 (7.35-7.45)
[2018-02-13 10:04] LABS: BASE EXCESS -0.3 mEq/L (-3 to +3); BICARBONATE 25.4 mEq/L (22-26); CARBOXY HGB 2.6 % (0-5); METHEMOGLOBIN 1.1 % (0-1.5)
[2018-02-13 10:32] LABS: VALPROIC ACID (DEPAKOTE) 45.3 MCG/ML (50-100)
[2018-02-14] VITALS (22 sets, daily range): BP systolic 93–175; BP diastolic 61–113
[2018-02-14 05:59] LABS: COMMENTS - BLOOD GASES C+; DEVICE VENT; FI02 30 %; MECHANICAL RATE 20 resp/min; MODE ACVC; PCO2 28 mm Hg (35-45); PEEP 10 CM/H20; PO2 105 mm Hg (80-100); SITE RR; TIDAL VOLUME 450 ML; TOTAL RESP RATE 20 resp/min; pH 7.53 (7.35-7.45)
[2018-02-14 06:00] LABS: BASE EXCESS 1.6 mEq/L (-3 to +3); BICARBONATE 23.4 mEq/L (22-26); CARBOXY HGB 1.8 % (0-5); METHEMOGLOBIN 0.9 % (0-1.5); O2 SATURATION (CALCULATED) 99.7 % (95-99)
[2018-02-14 09:03] LABS: BASOPHIL (%) 0.3 % (0-1); EOSINOPHIL (%) 1.9 % (0-5); EOSINOPHIL COUNT 0.2 K/uL (0-0.3); HEMATOCRIT 41.2 % (36.0-46.0); IMMATURE GRANULOCYTE (%) 0.4 % (0.0-0.7); LYMPHOCYTE (%) 23.7 % (15-42); LYMPHOCYTE COUNT 2.4 K/uL (1.0-2.8); MCH 29.3 PG (29.0-34.0); MCHC 32.5 G/DL (30.0-36.0); MCV 90.2 FL (83-99); MONOCYTE (%) 7.1 % (3-12); MONOCYTE COUNT 0.7 K/uL (0-0.8); NEUTROPHIL (%) 66.6 % (45-76); NEUTROPHIL COUNT 6.8 K/uL (1.8-6.4); PLATELET COUNT 159 K/uL (156-360); RBC DIS.WIDTH-CV 12.9 % (11.8-14.6); RBC DIS.WIDTH-SD 42.3 % (39-53); RED BLOOD COUNT 4.57 M/uL (3.80-5.20); WHITE BLOOD COUNT 10.2 K/uL (4.1-10.2)
[2018-02-14 09:10] LABS: HEMOGLOBIN 13.4 G/DL (11.9-15.5)
[2018-02-14] MEDS ORDERED: LEVETIRACETAM1000 MG PO (14:36)
[2018-02-14] MEDS ORDERED: ESCITALOPRAM OX20 MG PO (14:36)
[2018-02-14] MEDS ORDERED: DIVALPROEX SOD500 M1 PO (14:36)
[2018-02-15] VITALS (15 sets, daily range): BP systolic 115–177; BP diastolic 73–117
[2018-02-15 08:18] LABS: BASOPHIL (%) 0.1 % (0-1); EOSINOPHIL COUNT 0.3 K/uL (0-0.3); HEMATOCRIT 39.3 % (36.0-46.0); HEMOGLOBIN 12.8 G/DL (11.9-15.5); IMMATURE GRANULOCYTE (%) 0.3 % (0.0-0.7); LYMPHOCYTE (%) 21.3 % (15-42); LYMPHOCYTE COUNT 1.5 K/uL (1.0-2.8); MCH 29.6 PG (29.0-34.0); MCHC 32.6 G/DL (30.0-36.0); MONOCYTE (%) 7.7 % (3-12); MONOCYTE COUNT 0.5 K/uL (0-0.8); NEUTROPHIL (%) 66.6 % (45-76); NEUTROPHIL COUNT 4.7 K/uL (1.8-6.4); PLATELET COUNT 133 K/uL (156-360); RBC DIS.WIDTH-CV 12.3 % (11.8-14.6); RBC DIS.WIDTH-SD 41.1 % (39-53); RED BLOOD COUNT 4.32 M/uL (3.80-5.20)
[2018-02-15 08:42] LABS: CHLORIDE 109 MEQ/L (99-109); CREATININE 0.4 MG/DL (0.6-1.3); GFR ESTIMATE (CALCULATED) > 59 mL/min/; GLUCOSE 124 mg/dL (70-99); POTASSIUM 3.3 MEQ/L (3.7-5.4); SODIUM 144 MEQ/L (136-147); UREA NITROGEN (BUN) 3 mg/dL (9-23)
[2018-02-16 00:31] VITALS: BP 138/78
[2018-02-16 04:21] VITALS: BP 141/91
[2018-02-16 07:01] VITALS: BP 138/99
[2018-02-16 11:21] VITALS: BP 144/76
[2018-02-16 15:35] VITALS: BP 161/90
[2018-02-16 20:02] VITALS: BP 167/94
[2018-02-17 00:15] VITALS: BP 159/93
[2018-02-17 04:17] VITALS: BP 141/89
[2018-02-17 07:35] VITALS: BP 146/97
[2018-02-17] MEDS ORDERED: LEVETIRACETAM1000 MG PO (08:51)
[2018-02-17] MEDS ORDERED: DEPAKENE250 MG PO (08:51)
[2018-02-17 11:36] LABS: CHLORIDE 103 MEQ/L (99-109); CREATININE 0.5 MG/DL (0.6-1.3); GFR ESTIMATE (CALCULATED) > 59 mL/min/; POTASSIUM 3.6 MEQ/L (3.7-5.4); SODIUM 142 MEQ/L (136-147); UREA NITROGEN (BUN) 5 mg/dL (9-23)
[2018-02-17 11:37] LABS: GLUCOSE 248 mg/dL (70-99)
== END 2018-02-17 15:10 | disposition home or self-care (01) | DRG 100 ==
LOC: EME 08:32 → 4WEST 10:36 → EDOF 10:36 → ENRESERV 10:42 → 4WEST 11:15 → ENRESERV 02-15 13:03 → 5SOUTH 02-15 17:19
PROVIDERS: Emergency Medicine; Hospitalist; Internal Medicine; Obstetrics & Gynecology; Specialist
DX: G40.901 Epilepsy, unspecified, not intractable, with status epilepticus (principal); J69.0 Pneumonitis due to inhalation of food and vomit; J96.90 Respiratory failure, unspecified, unspecified whether with hypoxia or hypercapnia; F43.20 Adjustment disorder, unspecified; I69.320 Aphasia following cerebral infarction; J45.909 Unspecified asthma, uncomplicated; J43.9 Emphysema, unspecified; I10 Essential (primary) hypertension; E11.9 Type 2 diabetes mellitus without complications; F41.9 Anxiety disorder, unspecified; E66.9 Obesity, unspecified; F32.9 Major depressive disorder, single episode, unspecified; E87.6 Hypokalemia; E03.9 Hypothyroidism, unspecified; F31.9 Bipolar disorder, unspecified; F09 Unspecified mental disorder due to known physiological condition; R21 Rash and other nonspecific skin eruption; F17.200 Nicotine dependence, unspecified, uncomplicated; Z88.8 Allergy status to other drugs, medicaments and biological substances; Z91.19 Patient's noncompliance with other medical treatment and regimen; Z99.11 Dependence on respirator [ventilator] status; F22 Delusional disorders; Z68.32 Body mass index [BMI] 32.0-32.9, adult
CPT/HCPCS: 36600; 70450; 71045; 80048; 80164; 80202; 81003; 82948; 83605; 85025; 87040; 87070; 87077; 87181; 87185; 87205; 87641; 92610 GN; 93005; 94002; 94003; 94640; 94799; 99281; 99285; J0456; J1644; J1815; J1953; J2060; J2543; J2704; J3370; J7030; J7050

== ENCOUNTER 2018-02-24 00:17 | Emergency (ER) | payer OTHER ==
[~2018-02-24] VITALS: Ht 149.9 cm; Wt 83.5 kg
[~2018-02-24 00:17] MED LIST changes: +DEPAKENE250 MG PO
[2018-02-24 00:44] LABS: HEMATOCRIT 38.1 % (36.0-46.0); HEMOGLOBIN 12.8 G/DL (11.9-15.5); MCH 30.3 PG (29.0-34.0); MCHC 33.6 G/DL (30.0-36.0); MCV 90.1 FL (83-99); RBC DIS.WIDTH-CV 12.5 % (11.8-14.6); RBC DIS.WIDTH-SD 41.1 % (39-53); RED BLOOD COUNT 4.23 M/uL (3.80-5.20); WHITE BLOOD COUNT 14.6 K/uL (4.1-10.2)
[2018-02-24 00:47] LABS: PLATELET COUNT 275 K/uL (156-360)
[2018-02-24 00:55] LABS: CHLORIDE 104 mEq/L (99-109); POTASSIUM 3.5 mEq/L (3.7-5.4); SODIUM 138 mEq/L (136-147)
[2018-02-24 00:57] LABS: GLUCOSE 207 mg/dL (70-99)
[2018-02-24 01:00] LABS: CREATININE 0.6 mg/dL (0.6-1.3); GFR ESTIMATE (CALCULATED) > 59 mL/min/; SERUM ETHYL ALCOHOL < 10 mg/dL
[2018-02-24 01:01] LABS: UREA NITROGEN (BUN) 9 mg/dL (9-23)
[2018-02-24 02:31] LABS: AMPHETAMINE NEGATIVE (500 ng/mL); BARBITURATES NEGATIVE (200 ng/mL); BENZODIAZEPINES NEGATIVE (150 ng/mL); BUPRENORPHINE NEGATIVE (10 ng/mL); COCAINE PRESUMPTIVE POSITIVE (150 ng/mL); METHADONE NEGATIVE (200 ng/mL); METHAMPHETAMINE NEGATIVE (500 ng/mL); OPIATES (MORPHINE) NEGATIVE (100 ng/mL); OXYCODONE NEGATIVE (100 ng/mL); PHENCYCLIDINE NEGATIVE (25 ng/mL); PROPOXYPHENE NEGATIVE (300 ng/mL); THC CANNABINOIDS NEGATIVE (50 ng/mL); TRICYCLIC ANTIDEPRESSANTS NEGATIVE (300 ng/mL)
[2018-02-24 03:14] VITALS: BP 134/90
== END 2018-02-24 03:19 | disposition home or self-care (01) ==
LOC: EME 00:17
DX: F32.9 Major depressive disorder, single episode, unspecified (principal); F31.9 Bipolar disorder, unspecified; F12.20 Cannabis dependence, uncomplicated; F41.9 Anxiety disorder, unspecified; I10 Essential (primary) hypertension; J43.9 Emphysema, unspecified; J45.909 Unspecified asthma, uncomplicated; E11.9 Type 2 diabetes mellitus without complications; Z86.73 Personal history of transient ischemic attack (TIA), and cerebral infarction without residual deficits; E03.9 Hypothyroidism, unspecified; F17.200 Nicotine dependence, unspecified, uncomplicated; Z88.8 Allergy status to other drugs, medicaments and biological substances
CPT/HCPCS: 80048; 84999; 85027; 90839; G0480